=== PATIENT | male | born 1955 | race Hispanic/Latino ===

== ENCOUNTER 2017-10-01 22:08 | Emergency (ER) | payer MEDICARE ==
[2017-10-01 22:59] LABS: BASOPHILS % (AUTO) 0.8 % (0.0-5.0); EOSINOPHILS % (AUTO) 1.8 % (0.0-8.0); HEMATOCRIT 43.3 % (42-54); LYMPHOCYTES % (AUTO) 30.8 % (21.0-51.0); MEAN CORPUSCULAR HEMOGLOBIN 33.3 pg (27.0-33.0); MEAN CORPUSCULAR VOLUME 92.5 fL (79-99); MONOCYTES % (AUTO) 5.3 % (3.0-13.0); NEUTROPHILS % (AUTO) 61.3 % (40.0-77.0); PLATELET COUNT (AUTO) 271 K/uL (130-400); RED BLOOD CELL COUNT(AUTO) 4.68 MIL/uL (4.50-6.20); RED CELL DISTRIBUTION WIDTH 12.3 % (11.0-15.5); WHITE BLOOD COUNT (AUTO) 9.1 K/uL (4.8-10.8)
[2017-10-01 23:09] LABS: APPEARANCE,URINE Clear (CLEAR); BILIRUBIN,URINE Negative (NEGATIVE); COLOR,URINE Yellow (YELLOW); GLUCOSE, URINE (UA) Negative (NEGATIVE); KETONES,URINE Negative (NEGATIVE); LEUKOCYTE ESTERASE ,URINE Negative (NEGATIVE); NITRATE,URINE Negative (NEGATIVE); OCCULT BLOOD,URINE Negative (NEGATIVE); PH,URINE 6.5 (5.0-8.0); PROTEIN,URINE Negative (NEGATIVE); UROBILINOGEN,URINE 0.2 mg/dL (0.2-1.0)
[2017-10-01 23:11] LABS: CREATININE 0.6 mg/dL (0.5-1.5); POTASSIUM 4.1 mmol/L (3.5-5.1)
[2017-10-01 23:16] LABS: AMPHET/METH SCREEN,URINE NEGATIVE (NEGATIVE); BARBITURATE SCREEN, URINE NEGATIVE (NEGATIVE); BENZODIAZEPINES SCREEN,URINE NEGATIVE (NEGATIVE); CANNABINOID SCREEN,URINE NEGATIVE (NEGATIVE); COCAINE SCREEN,URINE POSITIVE (NEGATIVE); OPIATE SCREEN,URINE NEGATIVE (NEGATIVE); PHENCYCLIDINE SCREEN,URINE NEGATIVE (NEGATIVE)
[2017-10-01 23:28] LABS: ALBUMIN 3.9 g/dL (3.5-5.0); BILIRUBIN,TOTAL 0.3 mg/dL (0.2-1.0); CREATINE KINASE MB 1.2 ng/mL (0.5-3.6)
[2017-10-01] MEDS ORDERED: NITROGLYCERIN 1GM/1 INCH PACKET TD ONE (23:32)
== END 2017-10-02 01:26 | disposition home or self-care (01) ==
LOC: EDH 22:08
DX: R07.89 Other chest pain (principal); F14.10 Cocaine abuse, uncomplicated; F10.10 Alcohol abuse, uncomplicated; E11.9 Type 2 diabetes mellitus without complications; I10 Essential (primary) hypertension; I25.2 Old myocardial infarction; Z79.4 Long term (current) use of insulin; Z72.0 Tobacco use
CPT/HCPCS: 36415; 71046; 80053; 80305; 81003; 82550; 82553; 83690; 84484 ×2; 85025; 93005 ×2; 99285; G0480

== ENCOUNTER 2018-01-12 13:25 | Emergency (ER) | payer MEDICARE ==
[2018-01-12 13:48] LABS: BASOPHILS % (AUTO) 0.9 % (0.0-5.0); EOSINOPHILS % (AUTO) 1.5 % (0.0-8.0); LYMPHOCYTES % (AUTO) 23.8 % (21.0-51.0); MEAN CORPUSCULAR HEMOGLOBIN 33.3 pg (27.0-33.0); MEAN CORPUSCULAR VOLUME 92.5 fL (79-99); MONOCYTES % (AUTO) 8.2 % (3.0-13.0); NEUTROPHILS % (AUTO) 65.6 % (40.0-77.0); PLATELET COUNT (AUTO) 208 K/uL (130-400); RED BLOOD CELL COUNT(AUTO) 4.11 MIL/uL (4.50-6.20); RED CELL DISTRIBUTION WIDTH 13.3 % (11.0-15.5); WHITE BLOOD COUNT (AUTO) 7.6 K/uL (4.8-10.8)
[2018-01-12 13:56] LABS: AMPHET/METH SCREEN,URINE NEGATIVE (NEGATIVE); BARBITURATE SCREEN, URINE NEGATIVE (NEGATIVE); BENZODIAZEPINES SCREEN,URINE NEGATIVE (NEGATIVE); CANNABINOID SCREEN,URINE NEGATIVE (NEGATIVE); COCAINE SCREEN,URINE POSITIVE (NEGATIVE); OPIATE SCREEN,URINE NEGATIVE (NEGATIVE); PHENCYCLIDINE SCREEN,URINE NEGATIVE (NEGATIVE)
[2018-01-12 14:06] LABS: INR 0.92 (0.85-1.15); PARTIAL THROMBOPLASTIN TIME 26.1 SEC (26.3-35.5); PROTHROMBIN TIME 9.7 SEC (9.6-11.6)
[2018-01-12 14:22] LABS: CREATININE 0.8 mg/dL (0.5-1.5); POTASSIUM 4.1 mmol/L (3.5-5.1)
[2018-01-12 14:25] LABS: ALBUMIN 2.9 g/dL (3.5-5.0); B-TYPE NATRIURETIC PEPTIDE 44 pg/mL (0-100); BILIRUBIN,TOTAL 0.3 mg/dL (0.2-1.0); TOTAL PROTEIN, SERUM 6.1 g/dL (6.0-8.3)
== END 2018-01-12 14:52 | disposition home or self-care (01) ==
LOC: EDH 13:25
DX: R07.89 Other chest pain (principal); F14.10 Cocaine abuse, uncomplicated; I25.10 Atherosclerotic heart disease of native coronary artery without angina pectoris; E11.9 Type 2 diabetes mellitus without complications; I10 Essential (primary) hypertension; I25.2 Old myocardial infarction; Z98.890 Other specified postprocedural states
CPT/HCPCS: 36415; 71045; 80053; 80305; 82550; 83880; 84484; 85025; 85610; 85730; 93005; 94761

== ENCOUNTER 2018-07-03 13:32 | Observation (INO) | payer MEDICARE ==
[~2018-07-03] VITALS: Ht 165.1 cm; Wt 67.0 kg
[~2018-07-03 13:32] MED LIST: ASPI-555 PO; BENZ2TAB10 PO; CLOP75TA32 PO; GLIP5TAB11 PO; HALO10 PO; ISOSM20 PO; LISI-613 PO; METF-446 PO; METO25TA6 PO; MONT10TA24 PO; NITR0.4T50 SL; RANO500T2 PO; ROPI2TAB2 PO
[2018-07-03] MEDS ORDERED: FAMOTIDINE/PF 20 MG/2 ML VIAL IV ONE (14:26)
[2018-07-03] MEDS ORDERED: MORPHINE SULFATE 2 MG/ML 1ML SYG ONE (14:26)
[2018-07-03 14:57] LABS: CREATININE 0.8 mg/dL (0.5-1.5); POTASSIUM 3.4 mmol/L (3.5-5.1)
[2018-07-03 15:00] LABS: ALBUMIN 3.4 g/dL (3.5-5.0); BILIRUBIN,TOTAL 0.7 mg/dL (0.2-1.0); TOTAL PROTEIN, SERUM 6.7 g/dL (6.0-8.3)
[2018-07-03 15:04] LABS: BASOPHILS % (AUTO) 0.5 % (0.0-5.0); EOSINOPHILS % (AUTO) 0.1 % (0.0-8.0); HEMATOCRIT 36.3 % (42-54); LYMPHOCYTES % (AUTO) 13.1 % (21.0-51.0); MEAN CORPUSCULAR HEMOGLOBIN 32.9 pg (27.0-33.0); MEAN CORPUSCULAR HGB CONC 36.7 g/dL (32.0-36.0); MEAN CORPUSCULAR VOLUME 89.9 fL (79-99); MONOCYTES % (AUTO) 4.4 % (3.0-13.0); NEUTROPHILS % (AUTO) 81.9 % (40.0-77.0); PLATELET COUNT (AUTO) 284 K/uL (130-400); RED BLOOD CELL COUNT(AUTO) 4.04 MIL/uL (4.50-6.20); RED CELL DISTRIBUTION WIDTH 13.3 % (11.0-15.5); WHITE BLOOD COUNT (AUTO) 10.5 K/uL (4.8-10.8)
[2018-07-03 15:29] LABS: B-TYPE NATRIURETIC PEPTIDE 36 pg/mL (0-100)
[2018-07-03] MEDS ORDERED: NITROGLYCERIN 0.4 MG SL TAB SL PRN (16:45)
[2018-07-03 17:45] VITALS: BP 138/80
[2018-07-03] MEDS: GLIPIZIDE 5 MG TABLET PO SCH (18:22)
[2018-07-03 19:42] VITALS: BP 155/77
[2018-07-03] MEDS: RANOLAZINE 500 MG TAB.SR.12H PO SCH (20:25)
[2018-07-03] MEDS: METOPROLOL TARTRATE 25 MG TAB PO SCH (20:26)
[2018-07-03] MEDS ORDERED: BENZTROPINE MESYLATE 0.5 MG TAB PO SCH (21:00)
[2018-07-03] MEDS ORDERED: MONTELUKAST SODIUM 10 MG TAB PO SCH (21:00)
[2018-07-03] MEDS ORDERED: ROPINIROLE HCL 1 MG TABLET PO SCH (21:00)
[2018-07-03 21:42] LABS: CREATINE KINASE, TOTAL 29 U/L (21-232); MYOGLOBIN 18 ng/mL (10-92); TROPONIN I < 0.04 ng/mL (0.00-0.06)
[2018-07-03 23:59] VITALS: BP 137/68
[2018-07-04 03:55] LABS: HEMATOCRIT 36.8 % (42-54); MEAN CORPUSCULAR HEMOGLOBIN 32.5 pg (27.0-33.0); MEAN CORPUSCULAR HGB CONC 36.4 g/dL (32.0-36.0); MEAN CORPUSCULAR VOLUME 89.3 fL (79-99); NUCLEATED RED BLOOD CELLS 0.1 % (0.0-0.19); PLATELET COUNT (AUTO) 254 K/uL (130-400); RED BLOOD CELL COUNT(AUTO) 4.13 MIL/uL (4.50-6.20); RED CELL DISTRIBUTION WIDTH 13.3 % (11.0-15.5)
[2018-07-04 03:59] LABS: HEMOGLOBIN A1C 7.6 % (4.0-6.0)
[2018-07-04 04:13] VITALS: BP 159/83
[2018-07-04 04:18] LABS: CARBON DIOXIDE 27 mmol/L (21-32); CHLORIDE 98 mmol/L (101-111); CHOLESTEROL 139 mg/dL (<200); CREATINE KINASE, TOTAL 27 U/L (21-232); CREATININE 0.7 mg/dL (0.5-1.5); GLOMERULAR FILTR. RATE CALC 122 mL/min (>60); GLUCOSE,RANDOM 99 mg/dL (70-105); HDL CHOLESTEROL 76 mg/dL (29-71); LDL DIRECT 58 mg/dL (0-99); MYOGLOBIN 15 ng/mL (10-92); POTASSIUM 3.8 mmol/L (3.5-5.1); SODIUM SERUM 134 mmol/L (136-145); TRIGLYCERIDES 44 mg/dL (30-200); TROPONIN I < 0.04 ng/mL (0.00-0.06); UREA NITROGEN, BLOOD 6 mg/dL (7-18)
[2018-07-04 05:05] LABS: BASOPHILS % (MANUAL) 1 % (0-2); EOSINOPHILS % (MANUAL) 1 % (1-6); LYMPHOCYTES % (MANUAL) 32 % (22-44); MAN.DIFF COMMENT-IMPRESSION MANUAL DIFFERENTIAL; MONOCYTES % (MANUAL) 4 % (2-9); REACTIVE LYMPHOCYTES 7 % (0-0); SEGMENTED NEUTROPHILS % 55 % (40-70)
[2018-07-04 05:06] LABS: PLATELET MORPHOLOGY COMMENT ADEQUATE
[2018-07-04 07:40] VITALS: BP 154/92
[2018-07-04] MEDS: RANOLAZINE 500 MG TAB.SR.12H PO SCH (08:07)
[2018-07-04] MEDS: METOPROLOL TARTRATE 25 MG TAB PO SCH (08:07)
[2018-07-04] MEDS: GLIPIZIDE 5 MG TABLET PO SCH (08:07)
[2018-07-04] MEDS ORDERED: ISOSORBIDE MONONITRATE 20 MG TABLET PO SCH (09:00)
[2018-07-04] MEDS ORDERED: ASPIRIN 81 MG EC TAB PO SCH (09:00)
[2018-07-04] MEDS ORDERED: METFORMIN HCL 500 MG TAB.SR.24H PO SCH (09:00)
[2018-07-04] MEDS ORDERED: HALOPERIDOL 5 MG TABLET PO SCH (09:00)
[2018-07-04] MEDS ORDERED: CLOPIDOGREL BISULFATE 75 MG TAB PO SCH (09:00)
[2018-07-04] MEDS ORDERED: LISINOPRIL 20 MG TABLET PO SCH (09:00)
[2018-07-04 11:28] VITALS: BP 127/62
== END 2018-07-04 14:35 | disposition home or self-care (01) ==
LOC: EDH 13:32 → EDHIP 15:53 → 2AH 17:41
PROVIDERS: ADMIT Internal Medicine Nephrology; ATTEND Internal Medicine Nephrology
DX: R07.89 Other chest pain (principal); E11.51 Type 2 diabetes mellitus with diabetic peripheral angiopathy without gangrene; E87.1 Hypo-osmolality and hyponatremia; D64.9 Anemia, unspecified; I25.10 Atherosclerotic heart disease of native coronary artery without angina pectoris; I10 Essential (primary) hypertension; I25.2 Old myocardial infarction; E78.5 Hyperlipidemia, unspecified; E87.6 Hypokalemia; I42.9 Cardiomyopathy, unspecified; F17.210 Nicotine dependence, cigarettes, uncomplicated; F14.10 Cocaine abuse, uncomplicated; F29 Unspecified psychosis not due to a substance or known physiological condition; F31.9 Bipolar disorder, unspecified; Z91.19 Patient's noncompliance with other medical treatment and regimen; Z95.1 Presence of aortocoronary bypass graft; Z95.5 Presence of coronary angioplasty implant and graft; F41.9 Anxiety disorder, unspecified
CPT/HCPCS: 36415 ×2; 71045; 80048; 80053; 80061; 82550 ×3; 82948; 83036; 83874 ×2; 83880; 84484 ×3; 85025 ×2; 85378; 93005 ×2; 99285; G0378 ×23; J3490

== ENCOUNTER 2018-09-07 11:42 | Emergency (ER) | payer MEDICARE ==
[2018-09-07] MEDS ORDERED: ASPIRIN 325 MG TABLET ONE (12:01)
[2018-09-07] MEDS ORDERED: LORAZEPAM 2 MG/ML 1 ML VIAL ONE (12:02)
[2018-09-07 12:27] LABS: AMPHET/METH SCREEN,URINE NEGATIVE (NEGATIVE); BARBITURATE SCREEN, URINE NEGATIVE (NEGATIVE); BENZODIAZEPINES SCREEN,URINE NEGATIVE (NEGATIVE); CANNABINOID SCREEN,URINE NEGATIVE (NEGATIVE); COCAINE SCREEN,URINE NEGATIVE (NEGATIVE); OPIATE SCREEN,URINE NEGATIVE (NEGATIVE); PHENCYCLIDINE SCREEN,URINE NEGATIVE (NEGATIVE)
[2018-09-07] MEDS ORDERED: IPRATROPIUM/ALBUTEROL SULFATE 3 ML SOLUTION IH ONE ×2 (12:31→13:44)
[2018-09-07 12:42] LABS: CREATININE 0.9 mg/dL (0.5-1.5); POTASSIUM 3.9 mmol/L (3.5-5.1)
[2018-09-07 12:44] LABS: INR 0.91 (0.85-1.15); PARTIAL THROMBOPLASTIN TIME 26.1 SEC (26.3-35.5); PROTHROMBIN TIME 9.6 SEC (9.6-11.6)
[2018-09-07 12:46] LABS: ALBUMIN 3.6 g/dL (3.5-5.0); BILIRUBIN,TOTAL 0.6 mg/dL (0.2-1.0); TOTAL PROTEIN, SERUM 7.2 g/dL (6.0-8.3)
[2018-09-07] MEDS ORDERED: PREDNISONE 20 MG TABLET ONE (13:40)
== END 2018-09-07 14:17 | disposition home or self-care (01) ==
LOC: EDH 11:42
DX: J98.01 Acute bronchospasm (principal); R07.89 Other chest pain; F17.200 Nicotine dependence, unspecified, uncomplicated; F41.9 Anxiety disorder, unspecified; F31.9 Bipolar disorder, unspecified; I25.10 Atherosclerotic heart disease of native coronary artery without angina pectoris; F14.10 Cocaine abuse, uncomplicated; E11.9 Type 2 diabetes mellitus without complications; I10 Essential (primary) hypertension; I25.2 Old myocardial infarction; Z79.4 Long term (current) use of insulin
CPT/HCPCS: 36415; 71045; 80053; 80305; 84484; 85378; 85610; 85730; 93005; 94640 ×2; 96374; 99284; J2060

== ENCOUNTER 2019-02-08 15:07 | Inpatient (IN) | payer OTHER ==
[~2019-02-08] VITALS: Ht 165.1 cm; Wt 64.0 kg
[~2019-02-08 15:07] MED LIST changes: -ASPI-555 PO; -ISOSM20 PO; -LISI-613 PO; +LISI1TAB11 PO; +OMEP20CA10 PO; -RANO500T2 PO; +TAMS-1 PO
[2019-02-08] MEDS ORDERED: IOHEXOL 350 MG/ML 100ML INFUS..BTL IV ONE (15:28)
[2019-02-08 15:45] LABS: BASOPHILS % (AUTO) 0.3 % (0.0-5.0); EOSINOPHILS % (AUTO) 0.2 % (0.0-8.0); HEMATOCRIT 29.2 % (42-54); LYMPHOCYTES % (AUTO) 7.5 % (21.0-51.0); MEAN CORPUSCULAR HEMOGLOBIN 32.2 pg (27.0-33.0); MEAN CORPUSCULAR HGB CONC 36.9 g/dL (32.0-36.0); MEAN CORPUSCULAR VOLUME 87.3 fL (79-99); MONOCYTES % (AUTO) 9.5 % (3.0-13.0); NEUTROPHILS % (AUTO) 82.5 % (40.0-77.0); PLATELET COUNT (AUTO) 292 K/uL (130-400); RED BLOOD CELL COUNT(AUTO) 3.35 MIL/uL (4.50-6.20); RED CELL DISTRIBUTION WIDTH 13.4 % (11.0-15.5); WHITE BLOOD COUNT (AUTO) 10.2 K/uL (4.8-10.8)
[2019-02-08 15:59] LABS: INR 0.97 (0.85-1.15); PARTIAL THROMBOPLASTIN TIME 31.5 SEC (26.3-35.5); PROTHROMBIN TIME 10.2 SEC (9.6-11.6)
[2019-02-08] MEDS ORDERED: SODIUM CHLORIDE 0.9% 1000ML 1,000 ML IV ONE ×3 (16:15→17:41)
[2019-02-08] MEDS ORDERED: TETANUS/DIPHTHERIA TOXOID [ADULT] 0.5 ML VIAL IM ONE (16:15)
[2019-02-08 16:19] LABS: ALBUMIN 4.1 g/dL (3.5-5.0); BILIRUBIN,DIRECT 0.3 mg/dL (0.0-0.3); BILIRUBIN,TOTAL 1.2 mg/dL (0.2-1.0); CREATININE 0.6 mg/dL (0.5-1.5); POTASSIUM 4.1 mmol/L (3.5-5.1); TOTAL PROTEIN, SERUM 6.9 g/dL (6.0-8.3)
[2019-02-08 16:35] LABS: APPEARANCE,URINE Clear (CLEAR); BILIRUBIN,URINE Negative (NEGATIVE); COLOR,URINE Yellow (YELLOW); GLUCOSE, URINE (UA) 250 mg/dL (NEGATIVE); KETONES,URINE Trace mg/dL (NEGATIVE); LEUKOCYTE ESTERASE ,URINE Negative (NEGATIVE); NITRATE,URINE Negative (NEGATIVE); OCCULT BLOOD,URINE Negative (NEGATIVE); PH,URINE 7.5 (5.0-8.0); PROTEIN,URINE Negative (NEGATIVE)
[2019-02-08 16:41] LABS: AMPHET/METH SCREEN,URINE NEGATIVE (NEGATIVE); BARBITURATE SCREEN, URINE NEGATIVE (NEGATIVE); BENZODIAZEPINES SCREEN,URINE NEGATIVE (NEGATIVE); CANNABINOID SCREEN,URINE NEGATIVE (NEGATIVE); COCAINE SCREEN,URINE NEGATIVE (NEGATIVE); OPIATE SCREEN,URINE NEGATIVE (NEGATIVE); PHENCYCLIDINE SCREEN,URINE NEGATIVE (NEGATIVE)
[2019-02-08 18:17] LABS: ABG BASE EXCESS -2.9 mmol/L (-2.0-3.0); ABG HCO3 21.3 mmol/L (21.0-28.0); ABG OXYGEN SATURATION 97.3 % (95.0-99.0); ABG PCO2 36 mmHg (35-48)
[2019-02-08 19:12] VITALS: BP 133/64
[2019-02-08] MEDS ORDERED: SODIUM CHLORIDE 0.9% 1000ML 1,000 ML IV SCH (22:45)
[2019-02-09 00:04] VITALS: BP 115/78
[2019-02-09 04:00] VITALS: BP 134/64
[2019-02-09 04:37] LABS: CREATININE 0.6 mg/dL (0.5-1.5); POTASSIUM 3.4 mmol/L (3.5-5.1)
[2019-02-09 08:00] VITALS: BP 133/64
[2019-02-09] MEDS: SODIUM CHLORIDE 0.9% 1000ML 1,000 ML IV SCH (10:20)
[2019-02-09] MEDS ORDERED: TAMSULOSIN HCL 0.4 MG CAP.ER.24H PO ONE (10:30)
[2019-02-09 12:00] VITALS: BP 170/71
--- NOTE | 2019-02-09 12:50 | NUR ---
[facility]- [facility] [place] MEDICAL RECORD REVIEWED. NO CM INTERVENTION Addendum: 02/09/19 at 1254 by МАРИЯ SOUSA RN CM Amended: Links added.
[2019-02-09 16:00] VITALS: BP 135/81
[2019-02-09] MEDS: METFORMIN HCL 500 MG TABLET PO SCH (18:34)
[2019-02-09 19:00] VITALS: BP 133/86
[2019-02-09] MEDS: METOPROLOL TARTRATE 25 MG TAB PO SCH (20:56)
[2019-02-09] MEDS: MONTELUKAST SODIUM 10 MG TAB PO SCH (20:56)
[2019-02-10 00:03] VITALS: BP 123/55
[2019-02-10 04:05] VITALS: BP 117/71
[2019-02-10 05:44] LABS: HEMATOCRIT 27.6 % (42-54); MEAN CORPUSCULAR HEMOGLOBIN 32.2 pg (27.0-33.0); MEAN CORPUSCULAR HGB CONC 35.9 g/dL (32.0-36.0); MEAN CORPUSCULAR VOLUME 89.7 fL (79-99); PLATELET COUNT (AUTO) 299 K/uL (130-400); RED BLOOD CELL COUNT(AUTO) 3.08 MIL/uL (4.50-6.20); RED CELL DISTRIBUTION WIDTH 13.6 % (11.0-15.5); WHITE BLOOD COUNT (AUTO) 11.6 K/uL (4.8-10.8)
[2019-02-10 05:49] LABS: BAND NEUTROPHILS % (MANUAL) 2 % (0-2); CREATININE 0.6 mg/dL (0.5-1.5); LYMPHOCYTES % (MANUAL) 12 % (22-44); MONOCYTES % (MANUAL) 12 % (2-9); POTASSIUM 3.8 mmol/L (3.5-5.1); SEGMENTED NEUTROPHILS % 74 % (40-70)
[2019-02-10 05:50] LABS: MAN.DIFF COMMENT-IMPRESSION MANUAL DIFFERENTIAL; PLATELET MORPHOLOGY COMMENT ADEQUATE
[2019-02-10 08:34] VITALS: BP 106/75
[2019-02-10] MEDS ORDERED: TAMSULOSIN HCL 0.4 MG CAP.ER.24H PO SCH (09:00)
[2019-02-10] MEDS: METOPROLOL TARTRATE 25 MG TAB PO SCH ×2 (09:03→20:35)
[2019-02-10] MEDS: PANTOPRAZOLE SODIUM 40 MG TABLET.DR PO SCH (09:03)
[2019-02-10] MEDS: METFORMIN HCL 500 MG TABLET PO SCH ×2 (09:04→17:37)
[2019-02-10] MEDS: CLOPIDOGREL BISULFATE 75 MG TAB PO SCH (09:04)
[2019-02-10] MEDS: TAMSULOSIN HCL 0.4 MG CAP.ER.24H PO SCH (09:04)
[2019-02-10] MEDS: SODIUM CHLORIDE 0.9% 1000ML 1,000 ML IV SCH ×2 (09:08→20:43)
[2019-02-10] MEDS ORDERED: SODIUM CHLORIDE 1,000 MG TAB PO SCH (09:30)
[2019-02-10 11:00] VITALS: BP 103/72
[2019-02-10 16:00] VITALS: BP 122/78
[2019-02-10 19:00] VITALS: BP 159/71
[2019-02-10] MEDS: MONTELUKAST SODIUM 10 MG TAB PO SCH (20:36)
[2019-02-11] VITALS: BP 135/75
[2019-02-11 04:00] VITALS: BP 151/93
[2019-02-11 06:19] LABS: CREATININE 0.7 mg/dL (0.5-1.5); POTASSIUM 4.1 mmol/L (3.5-5.1)
[2019-02-11 08:00] VITALS: BP 158/98
[2019-02-11] MEDS: TAMSULOSIN HCL 0.4 MG CAP.ER.24H PO SCH (09:31)
[2019-02-11] MEDS: PANTOPRAZOLE SODIUM 40 MG TABLET.DR PO SCH (09:31)
[2019-02-11] MEDS: METFORMIN HCL 500 MG TABLET PO SCH (09:31)
[2019-02-11] MEDS: METOPROLOL TARTRATE 25 MG TAB PO SCH (09:31)
[2019-02-11] MEDS: CLOPIDOGREL BISULFATE 75 MG TAB PO SCH (09:32)
[2019-02-11] MEDS ORDERED: SODIUM CHLORIDE 1,000 MG TAB PO SCH (10:00)
[2019-02-11 11:00] VITALS: BP 132/73
--- NOTE | 2019-02-11 14:04 | NUR ---
PT D/C HOME USING TEACH BACK TECHNIQUE RE; S/S TO WATCH FOR AND WHEN TO CALL MD OR 911. AAOX3, 2 IV OUT INTACT, NO BLEEDING, NO SOB, NO TELE, NURSE EMILY AWARE TO: PATIENT IS TO FOLLOW UP WITH DR. VAZQUEZ IN 2 WEEKS, CALL TO SET UP AN APPOINTMENT STAFF OUT TO LUNCH. CALL AT PHONE# [phone]. CALL DR[address] VAZQUEZ IF PATIENT IS HAVING RECURRENT FALLS, OR CONFUSED. PATIENT IS TO TAKE SALT TABLETS PRESCRIBED BY THE PRACTICAL NURSING TEACHER.
== END 2019-02-11 14:10 | disposition home or self-care (01) | DRG 641 ==
LOC: EDH 15:07 → EEVIPCON 15:07 → EDHIP 17:43 → OBSVTOIN 17:43 → 4CH 19:10
PROVIDERS: ADMIT Internal Medicine Nephrology; ATTEND Internal Medicine Nephrology
PROC: 3E0234Z Introduction of Serum, Toxoid and Vaccine into Muscle, Percutaneous Approach (ICD-10-PCS; principal; 2019-02-08)
DX: E87.1 Hypo-osmolality and hyponatremia (principal); N28.9 Disorder of kidney and ureter, unspecified; N40.0 Benign prostatic hyperplasia without lower urinary tract symptoms; E87.8 Other disorders of electrolyte and fluid balance, not elsewhere classified; E11.9 Type 2 diabetes mellitus without complications; I10 Essential (primary) hypertension; E86.9 Volume depletion, unspecified; I25.10 Atherosclerotic heart disease of native coronary artery without angina pectoris; Z23 Encounter for immunization
CPT/HCPCS: 36415; 36600; 70450; 71260; 72125; 73590; 74177; 80048; 80076; 80305; 81003; 82140; 82550; 82803; 82948; 84484; 85025; 85610; 85730; 87040; 90714; 93005; 99291; G0378; J7030; Q9967

== ENCOUNTER 2019-10-31 07:41 | Emergency (ER) | payer MEDICARE, OTHER ==
[~2019-10-31 07:41] MED LIST changes: -BENZ2TAB10 PO; -GLIP5TAB11 PO; -HALO10 PO; -LISI1TAB11 PO; -MONT10TA24 PO; +MONT10TA26 PO; -OMEP20CA10 PO; +OMEP20CA12 PO; -ROPI2TAB2 PO
[2019-10-31] MEDS ORDERED: LIDOCAINE 5% TOPICAL PATCH TP ONE (08:12)
== END 2019-10-31 08:24 | disposition home or self-care (01) ==
LOC: EDH 07:41
DX: G89.29 Other chronic pain (principal); M25.552 Pain in left hip; F31.9 Bipolar disorder, unspecified; E11.9 Type 2 diabetes mellitus without complications; I10 Essential (primary) hypertension; F41.9 Anxiety disorder, unspecified; I25.10 Atherosclerotic heart disease of native coronary artery without angina pectoris; F14.10 Cocaine abuse, uncomplicated; I25.2 Old myocardial infarction
CPT/HCPCS: 73502

== ENCOUNTER → 2020-12-14 | Outpatient (CLI) | payer OTHER ==
[~2020-12-14] MED LIST changes: -MONT10TA26 PO; +MONT10TA32 PO
== END | disposition home or self-care (01) ==
LOC: RAH 14:34
PROVIDERS: ATTEND Physical Medicine & Rehabilitation
DX: M51.16 Intervertebral disc disorders with radiculopathy, lumbar region (principal); M48.061 Spinal stenosis, lumbar region without neurogenic claudication
CPT/HCPCS: 72148

== ENCOUNTER → 2021-02-08 | Outpatient (CLI) | payer OTHER | END | disposition home or self-care (01) | LOC: RAH 09:14 | PROVIDERS: ATTEND Physical Medicine & Rehabilitation | DX: M50.223 Other cervical disc displacement at C6-C7 level (principal); M48.02 Spinal stenosis, cervical region | CPT/HCPCS: 72141 ==

== ENCOUNTER → 2021-02-23 | Outpatient (CLI) | payer OTHER | END | disposition home or self-care (01) | LOC: RAH 09:28 | PROVIDERS: ATTEND Physical Medicine & Rehabilitation | DX: M25.571 Pain in right ankle and joints of right foot (principal); M25.832 Other specified joint disorders, left wrist; M25.831 Other specified joint disorders, right wrist; M25.572 Pain in left ankle and joints of left foot; M25.532 Pain in left wrist; M25.531 Pain in right wrist | CPT/HCPCS: 73110; 73610 ==

== ENCOUNTER → 2021-03-12 | Outpatient (CLI) | payer OTHER | END | disposition home or self-care (01) | LOC: RAH 10:09 | PROVIDERS: ATTEND Physical Medicine & Rehabilitation | DX: I70.293 Other atherosclerosis of native arteries of extremities, bilateral legs (principal); I65.23 Occlusion and stenosis of bilateral carotid arteries | CPT/HCPCS: 93925; 93930 ==

== ENCOUNTER 2021-11-23 09:02 | Emergency (ER) | payer OTHER ==
[~2021-11-23] VITALS: Ht 165.1 cm; Wt 70.3 kg
[~2021-11-23 09:02] MED LIST changes: +ATOR40TA69 PO; +MONT-39 PO; -MONT10TA32 PO
[2021-11-23 09:31] LABS: BASOPHILS % (AUTO) 0.8 % (0.0-5.0); EOSINOPHILS % (AUTO) 4.1 % (0.0-8.0); LYMPHOCYTES % (AUTO) 36.1 % (21.0-51.0); MEAN CORPUSCULAR HEMOGLOBIN 30.5 pg (27.0-33.0); MEAN CORPUSCULAR HGB CONC 33.3 g/dL (32.0-36.0); MEAN CORPUSCULAR VOLUME 91.5 fL (79-99); MONOCYTES % (AUTO) 6.1 % (3.0-13.0); PLATELET COUNT (AUTO) 249 K/uL (130-400); RED BLOOD CELL COUNT(AUTO) 2.95 MIL/uL (4.50-6.20); RED CELL DISTRIBUTION WIDTH 13.7 % (11.0-15.5); WHITE BLOOD COUNT (AUTO) 8.5 K/uL (4.8-10.8)
[2021-11-23 09:44] LABS: CREATININE 1.3 mg/dL (0.5-1.5); POTASSIUM 4.2 mmol/L (3.5-5.1)
[2021-11-23 09:49] LABS: ALBUMIN 3.1 g/dL (3.5-5.0); BILIRUBIN,TOTAL 0.8 mg/dL (0.2-1.0); TOTAL PROTEIN, SERUM 6.2 g/dL (6.0-8.3)
[2021-11-23 09:50] LABS: B-TYPE NATRIURETIC PEPTIDE 84 pg/mL (0-100)
[2021-11-23 11:02] VITALS: BP 138/47
[2021-11-23] MEDS ORDERED: ELEC1000 PO (11:08)
[2021-11-26] MEDS ORDERED: ONDA4TAB10 PO (23:10)
[2021-11-26] MEDS ORDERED: METO-296 PO (23:10)
== END 2021-11-23 11:21 | disposition home or self-care (01) ==
LOC: EDH 09:02
DX: R06.00 Dyspnea, unspecified (principal); Z71.1 Person with feared health complaint in whom no diagnosis is made; E11.9 Type 2 diabetes mellitus without complications; E78.00 Pure hypercholesterolemia, unspecified; I10 Essential (primary) hypertension; F17.200 Nicotine dependence, unspecified, uncomplicated; Z79.84 Long term (current) use of oral hypoglycemic drugs; Z79.899 Other long term (current) drug therapy; Z86.73 Personal history of transient ischemic attack (TIA), and cerebral infarction without residual deficits; Z88.6 Allergy status to analgesic agent
CPT/HCPCS: 36415; 71045; 80053; 83880; 84484; 85025; 93005

== ENCOUNTER 2022-02-25 15:27 | Inpatient (IN) | payer MEDICARE, OTHER ==
[~2022-02-25] VITALS: Ht 165.1 cm; Wt 73.7 kg
[~2022-02-25 15:27] MED LIST changes: +ELEC1000 PO; +METO-296 PO; +ONDA4TAB10 PO
[2022-02-25 17:52] LABS: BASOPHILS % (AUTO) 0.3 % (0.0-5.0); HEMATOCRIT 32.9 % (42-54); LYMPHOCYTES % (AUTO) 17.5 % (21.0-51.0); MEAN CORPUSCULAR HEMOGLOBIN 31.6 pg (27.0-33.0); MEAN CORPUSCULAR HGB CONC 35.6 g/dL (32.0-36.0); MEAN CORPUSCULAR VOLUME 88.9 fL (79-99); MONOCYTES % (AUTO) 1.9 % (3.0-13.0); NEUTROPHILS % (AUTO) 77.1 % (40.0-77.0); PLATELET COUNT (AUTO) 355 K/uL (130-400)
[2022-02-25 18:03] LABS: CREATININE 1.4 mg/dL (0.5-1.5); POTASSIUM 3.8 mmol/L (3.5-5.1)
[2022-02-25 18:10] LABS: BILIRUBIN,TOTAL 0.8 mg/dL (0.2-1.0); MAGNESIUM 1.6 mg/dL (1.80-2.40); TOTAL PROTEIN, SERUM 6.9 g/dL (6.0-8.3)
[2022-02-25 18:24] LABS: B-TYPE NATRIURETIC PEPTIDE 53 pg/mL (0-100)
[2022-02-25] MEDS ORDERED: INSULIN HUMULIN R 100 UNIT/ML 3ML SQ STA (18:56)
[2022-02-25] MEDS ORDERED: MAGNESIUM 2GM PREMIX 50ML 50 ML IV SCH (19:00)
[2022-02-25] MEDS ORDERED: DEXAMETHASONE SOD PHOSPHATE 4 MG/ML 1ML VIAL IVP ONE (19:00)
[2022-02-25] MEDS ORDERED: CEFTRIAXONE 1G VIAL IVP ONE (19:00)
[2022-02-25] MEDS ORDERED: 0.9%NACL 1000ML 1,000 ML IV SCH ×2 (19:00→19:30)
[2022-02-25] MEDS ORDERED: DOXYCYCLINE HYCLATE 100 MG TABLET PO SCH (19:00)
[2022-02-25] MEDS ORDERED: ALBUTEROL INHALER 90MCG/INH IH PRN (19:30)
[2022-02-25] MEDS: AZITHROMYCIN 500MG+NS 250ML 250 ML IV SCH (19:30)
[2022-02-25] MEDS ORDERED: NITROGLYCERIN 0.4 MG SL TAB SL PRN (19:30)
[2022-02-25] MEDS ORDERED: ONDANSETRON 4MG INJ IV PRN (19:30)
[2022-02-25] MEDS ORDERED: ACETAMINOPHEN 325 MG TAB PO PRN ×2 (19:30)
[2022-02-25] MEDS ORDERED: DEXTROSE 50%-WATER 50 ML DISP.SYRIN IV PRN (19:30)
[2022-02-25] MEDS ORDERED: GLUCAGON 1MG KIT 1 MG ML IM PRN (19:30)
[2022-02-25] MEDS: ALBUTEROL INHALER 90MCG/INH IH SCH ×2 (20:22→23:08)
[2022-02-25 20:51] LABS: HEMOGLOBIN A1C 6.8 % (4.0-6.0)
[2022-02-25 20:53] LABS: INR 1.02 (0.85-1.15); PROTHROMBIN TIME 11.1 SEC (9.6-11.6)
[2022-02-25 21:00] LABS: CRP QUANTITATIVE 116.8 mg/L (0.00-9.0)
[2022-02-25] MEDS ORDERED: MAGNESIUM OXIDE 400 MG TABLET PO SCH (21:30)
[2022-02-25] MEDS: FAMOTIDINE 20MG TAB PO SCH (21:38)
[2022-02-25] MEDS: HEPARIN 5,000 UNIT VIAL SQ SCH (21:38)
[2022-02-25] MEDS ORDERED: CEFTRIAXONE 1G VIAL ONE (22:20)
[2022-02-25] MEDS: INSULIN HUMULIN R 100 UNIT/ML 3ML SQ SCH (22:41)
[2022-02-26] VITALS: BP 140/65
[2022-02-26] MEDS ORDERED: IOHEXOL 350 MG/ML 100ML INFUS..BTL IV ONE (00:43)
[2022-02-26] MEDS: ALBUTEROL INHALER 90MCG/INH IH SCH ×4 (02:54→16:41)
[2022-02-26 04:21] LABS: BASOPHILS % (AUTO) 0.3 % (0.0-5.0); EOSINOPHILS % (AUTO) 0.7 % (0.0-8.0); HEMATOCRIT 30.9 % (42-54); LYMPHOCYTES % (AUTO) 11.2 % (21.0-51.0); MEAN CORPUSCULAR HGB CONC 35.9 g/dL (32.0-36.0); MONOCYTES % (AUTO) 1.7 % (3.0-13.0); NEUTROPHILS % (AUTO) 83.8 % (40.0-77.0); PLATELET COUNT (AUTO) 394 K/uL (130-400); RED BLOOD CELL COUNT(AUTO) 3.47 MIL/uL (4.50-6.20); WHITE BLOOD COUNT (AUTO) 11.7 K/uL (4.8-10.8)
[2022-02-26 04:30] VITALS: BP 112/72
[2022-02-26 05:02] LABS: ALBUMIN 2.8 g/dL (3.5-5.0); BILIRUBIN,TOTAL 0.7 mg/dL (0.2-1.0); CREATININE 0.9 mg/dL (0.5-1.5); MAGNESIUM 1.6 mg/dL (1.80-2.40); POTASSIUM 3.4 mmol/L (3.5-5.1); TOTAL PROTEIN, SERUM 6.7 g/dL (6.0-8.3)
[2022-02-26 06:16] LABS: INR 1.06 (0.85-1.15); PROTHROMBIN TIME 11.5 SEC (9.6-11.6)
[2022-02-26 06:18] LABS: PARTIAL THROMBOPLASTIN TIME 28.2 SEC (26.3-35.5)
[2022-02-26] MEDS: INSULIN HUMULIN R 100 UNIT/ML 3ML SQ SCH ×4 (07:30→20:15)
[2022-02-26 08:00] VITALS: BP 155/84
[2022-02-26] MEDS: HEPARIN 5,000 UNIT VIAL SQ SCH ×3 (08:14→20:15)
[2022-02-26] MEDS: FAMOTIDINE 20MG TAB PO SCH ×2 (08:18→20:09)
[2022-02-26 12:00] VITALS: BP 155/93
[2022-02-26] MEDS ORDERED: POTASSIUM CHLORIDE 20MEQ/100ML 100 ML IV PRN (15:00)
[2022-02-26] MEDS ORDERED: KCL 20 MEQ ERTAB PO PRN (15:00)
[2022-02-26] MEDS ORDERED: METOPROLOL TARTRATE 25 MG TAB PO ONE (15:00)
[2022-02-26] MEDS ORDERED: LIDOCAINE HCL-MPF 1% 2ML VIAL IV PRN (15:00)
[2022-02-26] MEDS: HYDROCODONE/ACETAMINOPHEN 5/325 MG TAB PO PRN ×2 (15:07→23:41)
[2022-02-26] MEDS: POTASSIUM CHLORIDE 10% ELIXIR 20 MEQ/15 ML UDCUP PO PRN ×2 (15:07→20:09)
[2022-02-26 16:00] VITALS: BP 162/83
[2022-02-26] MEDS: PREDNISONE 20 MG TABLET PO SCH (16:40)
[2022-02-26 20:00] VITALS: BP 151/75
[2022-02-26] MEDS: AZITHROMYCIN 500MG+NS 250ML 250 ML IV SCH (20:09)
[2022-02-26] MEDS: METOPROLOL TARTRATE 25 MG TAB PO SCH (20:10)
[2022-02-26] MEDS ORDERED: CEFTRIAXONE 1G VIAL IV SCH (21:00)
[2022-02-26] MEDS ORDERED: ATORVASTATIN 40 MG TABLET PO SCH (21:00)
[2022-02-27] VITALS: BP 141/78
[2022-02-27 04:00] VITALS: BP 161/96
[2022-02-27 06:06] LABS: BASOPHILS % (AUTO) 0.4 % (0.0-5.0); HEMATOCRIT 38.8 % (42-54); LYMPHOCYTES % (AUTO) 19.6 % (21.0-51.0); MEAN CORPUSCULAR HEMOGLOBIN 31.6 pg (27.0-33.0); MEAN CORPUSCULAR HGB CONC 34.3 g/dL (32.0-36.0); MEAN CORPUSCULAR VOLUME 92.2 fL (79-99); MONOCYTES % (AUTO) 3.2 % (3.0-13.0); NEUTROPHILS % (AUTO) 74.3 % (40.0-77.0); PLATELET COUNT (AUTO) 408 K/uL (130-400); RED BLOOD CELL COUNT(AUTO) 4.21 MIL/uL (4.50-6.20); RED CELL DISTRIBUTION WIDTH 14.8 % (11.0-15.5); WHITE BLOOD COUNT (AUTO) 9.9 K/uL (4.8-10.8)
[2022-02-27 06:21] LABS: BILIRUBIN,TOTAL 0.7 mg/dL (0.2-1.0); CREATININE 0.8 mg/dL (0.5-1.5); POTASSIUM 4.4 mmol/L (3.5-5.1); TOTAL PROTEIN, SERUM 7.3 g/dL (6.0-8.3)
[2022-02-27] MEDS ORDERED: PRED20TA3 PO (06:42)
[2022-02-27] MEDS ORDERED: ALBU18HF7 IH (06:42)
[2022-02-27] MEDS ORDERED: AZIT500T4 PO (06:42)
[2022-02-27] MEDS: ALBUTEROL INHALER 90MCG/INH IH SCH ×3 (07:30→15:30)
[2022-02-27] MEDS: INSULIN HUMULIN R 100 UNIT/ML 3ML SQ SCH ×3 (07:30→16:30)
[2022-02-27 08:00] VITALS: BP 154/83
[2022-02-27] MEDS: METOPROLOL TARTRATE 25 MG TAB PO SCH (08:29)
[2022-02-27] MEDS: HYDROCODONE/ACETAMINOPHEN 5/325 MG TAB PO PRN ×3 (08:29→14:18)
[2022-02-27] MEDS: PREDNISONE 20 MG TABLET PO SCH (08:29)
[2022-02-27] MEDS: FAMOTIDINE 20MG TAB PO SCH (08:30)
[2022-02-27] MEDS ORDERED: APIX2.5T PO (08:54)
[2022-02-27] MEDS: HEPARIN 5,000 UNIT VIAL SQ SCH ×2 (09:01→13:11)
[2022-02-27 11:15] VITALS: BP 175/92
[2022-02-27] MEDS ORDERED: HYDR-4153 PO (11:25)
[2022-02-27] MEDS ORDERED: LISINOPRIL 10 MG TABLET PO SCH (11:30)
[2022-02-27] MEDS ORDERED: HYDRALAZINE 25MG TABLET PO PRN (11:30)
[2022-02-27] MEDS ORDERED: LISI10TA24 PO (11:34)
[2022-02-27 16:00] VITALS: BP 168/74
== END 2022-02-27 17:00 | disposition home or self-care (01) | DRG 871 ==
LOC: EDH 15:27 → EDHIP 19:07 → 2AH 23:49
PROVIDERS: ADMIT Hospitalist; ATTEND Hospitalist
DX: A41.89 Other specified sepsis (principal); J12.82 Pneumonia due to coronavirus disease 2019; U07.1 COVID-19; J96.01 Acute respiratory failure with hypoxia; N17.9 Acute kidney failure, unspecified; E87.1 Hypo-osmolality and hyponatremia; J44.0 Chronic obstructive pulmonary disease with (acute) lower respiratory infection; R65.20 Severe sepsis without septic shock; E83.42 Hypomagnesemia; Z86.73 Personal history of transient ischemic attack (TIA), and cerebral infarction without residual deficits; H54.8 Legal blindness, as defined in USA; I10 Essential (primary) hypertension; E78.5 Hyperlipidemia, unspecified; I25.10 Atherosclerotic heart disease of native coronary artery without angina pectoris; E11.65 Type 2 diabetes mellitus with hyperglycemia; Z66 Do not resuscitate
CPT/HCPCS: 36415; 71045; 71270; 80053; 80061; 82550; 82728; 82948; 83036; 83605; 83615; 83735; 83874; 83880; 84145; 84484; 85025; 85378; 85610; 85730; 86140; 87040; 87635; 87804; 93005; 93970; 97039; 99291; C9803; G0378; J0456; J0696; J1644; J1815; J7030; Q9967

== ENCOUNTER 2022-03-25 17:51 | Observation (INO) | payer MEDICARE ==
[~2022-03-25] VITALS: Ht 162.6 cm; Wt 74.3 kg
[~2022-03-25 17:51] MED LIST changes: +ALBU18HF7 IH; +APIX2.5T PO; +AZIT500T4 PO; -ELEC1000 PO; +HYDR-4153 PO; +LISI10TA24 PO; -METO-296 PO; -NITR0.4T50 SL; -ONDA4TAB10 PO; +PRED20TA3 PO
[2022-03-25 18:27] LABS: BASOPHILS % (AUTO) 0.3 % (0.0-5.0); EOSINOPHILS % (AUTO) 1.3 % (0.0-8.0); HEMATOCRIT 27.1 % (42-54); LYMPHOCYTES % (AUTO) 36.4 % (21.0-51.0); MEAN CORPUSCULAR HEMOGLOBIN 32.2 pg (27.0-33.0); MEAN CORPUSCULAR HGB CONC 34.3 g/dL (32.0-36.0); MEAN CORPUSCULAR VOLUME 93.8 fL (79-99); MONOCYTES % (AUTO) 5.2 % (3.0-13.0); NEUTROPHILS % (AUTO) 55.8 % (40.0-77.0); PLATELET COUNT (AUTO) 201 K/uL (130-400); RED BLOOD CELL COUNT(AUTO) 2.89 MIL/uL (4.50-6.20); RED CELL DISTRIBUTION WIDTH 13.4 % (11.0-15.5); WHITE BLOOD COUNT (AUTO) 6.9 K/uL (4.8-10.8)
[2022-03-25 18:40] LABS: CREATININE 0.8 mg/dL (0.5-1.5); POTASSIUM 4.2 mmol/L (3.5-5.1)
[2022-03-25 18:47] LABS: ALBUMIN 2.7 g/dL (3.5-5.0); MAGNESIUM 0.9 mg/dL (1.80-2.40); TOTAL PROTEIN, SERUM 6.1 g/dL (6.0-8.3)
[2022-03-25] MEDS ORDERED: MAGNESIUM 2GM PREMIX 50ML 50 ML IV SCH (19:30)
[2022-03-25] MEDS ORDERED: ENOXAPARIN SODIUM 1 MG/KG SQ SCH (19:30)
[2022-03-25] MEDS ORDERED: ONDANSETRON 4MG INJ IV PRN (20:30)
[2022-03-25] MEDS ORDERED: MORPHINE 2 MG SYG IV PRN (20:30)
[2022-03-25] MEDS ORDERED: ASPIRIN 81MG CHEW TAB PO ONE (20:30)
[2022-03-25] MEDS ORDERED: MORPHINE 4 MG SYG IV PRN (20:30)
[2022-03-25] MEDS ORDERED: ENOXAPARIN SODIUM 100 MG/1 ML SQ ONE (21:17)
[2022-03-25] MEDS: NITROGLYCERIN 1GM OINT 1 INCH/1GM TD SCH (21:25)
[2022-03-26 01:25] VITALS: BP 125/67
[2022-03-26] MEDS ORDERED: SOLU-MEDROL 125MG VIAL IVP ONE (02:30)
[2022-03-26] MEDS ORDERED: ALBUTEROL INHALER 90MCG/INH IH PRN (03:00)
[2022-03-26] MEDS ORDERED: CEPHALEXIN 500 MG CAPSULE PO SCH ×2 (03:00→09:00)
[2022-03-26] MEDS: NITROGLYCERIN 1GM OINT 1 INCH/1GM TD SCH ×2 (04:34→11:46)
[2022-03-26 04:47] VITALS: BP 156/61
[2022-03-26 05:19] LABS: BASOPHILS % (AUTO) 0.6 % (0.0-5.0); EOSINOPHILS % (AUTO) 2.1 % (0.0-8.0); HEMATOCRIT 31.3 % (42-54); MEAN CORPUSCULAR HEMOGLOBIN 32.1 pg (27.0-33.0); MEAN CORPUSCULAR HGB CONC 33.9 g/dL (32.0-36.0); MEAN CORPUSCULAR VOLUME 94.8 fL (79-99); MONOCYTES % (AUTO) 4.8 % (3.0-13.0); NEUTROPHILS % (AUTO) 52.7 % (40.0-77.0); PLATELET COUNT (AUTO) 228 K/uL (130-400); RED CELL DISTRIBUTION WIDTH 13.4 % (11.0-15.5); WHITE BLOOD COUNT (AUTO) 6.3 K/uL (4.8-10.8)
[2022-03-26 05:22] LABS: HEMOGLOBIN A1C 7.7 % (4.0-6.0)
[2022-03-26 05:36] LABS: INR 0.94 (0.85-1.15); PROTHROMBIN TIME 10.3 SEC (9.6-11.6)
[2022-03-26 06:25] LABS: CREATININE 0.7 mg/dL (0.5-1.5); MAGNESIUM 1.4 mg/dL (1.80-2.40); PHOSPHORUS 3.7 mg/dL (2.5-4.9); THYROID STIMULATING HORMONE 1.18 uIU/mL (0.36-3.74)
[2022-03-26] MEDS: IPRATROPIUM 0.5 MG/2.5 ML INH IH SCH ×2 (07:03→13:38)
[2022-03-26 08:00] VITALS: BP 129/65
[2022-03-26] MEDS ORDERED: BUDESONIDE 0.5 MG/2 ML INH IH SCH ×2 (09:00→18:00)
[2022-03-26] MEDS ORDERED: ASPIRIN 81MG CHEW TAB PO SCH (09:00)
[2022-03-26] MEDS ORDERED: METOPROLOL TARTRATE 1 MG/ML 5ML VIAL IV PRN (09:30)
[2022-03-26] MEDS ORDERED: AZITHROMYCIN 500MG+NS 250ML IVPB SCH (10:00)
[2022-03-26] MEDS ORDERED: CEFTRIAXONE 1G VIAL IVP SCH (10:00)
[2022-03-26] MEDS ORDERED: SOLU-MEDROL 40MG VIAL IVP SCH ×2 (10:30→14:00)
[2022-03-26] MEDS ORDERED: CEPH500T PO (11:06)
[2022-03-26 11:22] VITALS: BP 133/69
[2022-03-26] MEDS ORDERED: INSULIN HUMULIN R 100 UNIT/ML 3ML SQ SCH (12:00)
[2022-03-27] MEDS ORDERED: FAMOTIDINE 20MG TAB PO SCH (09:00)
[2022-03-27] MEDS ORDERED: ENOXAPARIN SODIUM 40 MG/0.4 ML SYRINGE SQ SCH (09:00)
== END 2022-03-26 14:34 | disposition home or self-care (01) ==
LOC: EDH 17:51 → INTOOBSV 20:21 → EDHIP 20:21 → 4AH 03-26 01:12
PROVIDERS: ADMIT Hospitalist; ATTEND Hospitalist
DX: I25.110 Atherosclerotic heart disease of native coronary artery with unstable angina pectoris (principal); R07.89 Other chest pain; J84.10 Pulmonary fibrosis, unspecified; I21.4 Non-ST elevation (NSTEMI) myocardial infarction; D64.9 Anemia, unspecified; R13.10 Dysphagia, unspecified; R79.89 Other specified abnormal findings of blood chemistry; I10 Essential (primary) hypertension; E78.5 Hyperlipidemia, unspecified; J44.9 Chronic obstructive pulmonary disease, unspecified; L73.8 Other specified follicular disorders; E78.00 Pure hypercholesterolemia, unspecified; E11.9 Type 2 diabetes mellitus without complications; H54.8 Legal blindness, as defined in USA; I45.10 Unspecified right bundle-branch block; N40.0 Benign prostatic hyperplasia without lower urinary tract symptoms; Z95.1 Presence of aortocoronary bypass graft; Z86.73 Personal history of transient ischemic attack (TIA), and cerebral infarction without residual deficits; Z79.899 Other long term (current) drug therapy
CPT/HCPCS: 96372; 96365; 99285; 82550; 83735 ×2; 84484 ×4; 80053; 83880; 85025 ×2; 85378; 36415 ×2; 71045; 93005; 97039 ×2; 94640 ×2; 96376; 96366; 96375; 96367; 83036; 84443; 84100; 80048; 85610; 85730; 82948 ×2; 97161; 94664; J3475; J1650; J1815; G0378 ×4; J3490; J2930; J0696; J2920; J0456

== ENCOUNTER → 2022-05-08 | Outpatient (CLI) | payer MEDICARE ==
[~2022-05-08] MED LIST changes: -AZIT500T4 PO; +CEPH500T PO
[2022-05-08 13:05] LABS: CREATININE 0.9 mg/dL (0.5-1.5); POTASSIUM 3.7 mmol/L (3.5-5.1)
== END | disposition home or self-care (01) ==
LOC: LAB 09:29
PROVIDERS: ATTEND Internal Medicine Cardiovascular Disease
DX: R07.9 Chest pain, unspecified (principal)
CPT/HCPCS: 36415; 80048

== ENCOUNTER 2022-05-16 13:20 | Emergency (ER) | payer MEDICARE ==
[~2022-05-16] VITALS: Ht 165.1 cm; Wt 77.1 kg
[2022-05-16 14:33] VITALS: BP 133/69
[2022-05-22] MEDS ORDERED: PANT40TA54 PO ×2 (07:06→18:30)
[2022-05-22] MEDS ORDERED: TEMA30CA PO ×2 (07:06→18:30)
[2022-05-22] MEDS ORDERED: ATOR40TA71 PO (07:06)
[2022-05-22] MEDS ORDERED: MONT-39 PO (07:06)
[2022-05-22] MEDS ORDERED: QUET25TA36 PO (07:06)
[2022-05-22] MEDS ORDERED: IRON1CAP32 PO ×2 (07:06→18:30)
[2022-05-22] MEDS ORDERED: LIDOCAINE 5% PATCH TD (18:30)
[2022-05-22] MEDS ORDERED: HYDR-4068 PO (18:30)
[2022-05-22] MEDS ORDERED: KETO120S13 TP (18:30)
[2022-05-22] MEDS ORDERED: SODI1TAB4 PO (18:30)
[2022-05-22] MEDS ORDERED: ONDA-105 PO (18:30)
[2022-05-22] MEDS ORDERED: CYCL-309 PO (18:30)
[2022-05-27] MEDS ORDERED: ACET-2743 PO (10:44)
[2022-05-27] MEDS ORDERED: LEVO-70 PO (10:45)
== END 2022-05-16 14:32 | disposition home or self-care (01) ==
LOC: EDH 13:20
DX: S51.812A Laceration without foreign body of left forearm, initial encounter (principal); E11.9 Type 2 diabetes mellitus without complications; E78.00 Pure hypercholesterolemia, unspecified; I10 Essential (primary) hypertension; F17.200 Nicotine dependence, unspecified, uncomplicated; Z88.6 Allergy status to analgesic agent; Z86.73 Personal history of transient ischemic attack (TIA), and cerebral infarction without residual deficits; X58.XXXA Exposure to other specified factors, initial encounter; Y93.89 Activity, other specified; Y92.89 Other specified places as the place of occurrence of the external cause; Y99.8 Other external cause status

== ENCOUNTER 2022-06-06 10:36 | Emergency (ER) | payer MEDICARE ==
[~2022-06-06 10:36] MED LIST changes: +ACET-2743 PO; -ALBU18HF7 IH; -APIX2.5T PO; -ATOR40TA69 PO; +ATOR40TA71 PO; -CEPH500T PO; -CLOP75TA32 PO; +CYCL-309 PO; +HYDR-4068 PO; -HYDR-4153 PO; +IRON1CAP32 PO; +KETO120S13 TP; +LEVO-70 PO; +LIDOCAINE 5% PATCH TD; -LISI10TA24 PO; -METF-446 PO; -METO25TA6 PO; -OMEP20CA12 PO; +ONDA-105 PO; +PANT40TA54 PO; -PRED20TA3 PO; +QUET25TA36 PO; +SODI1TAB4 PO; +TEMA30CA PO
[2022-06-06 11:09] LABS: BASOPHILS % (AUTO) 0.1 % (0.0-5.0); EOSINOPHILS % (AUTO) 0.6 % (0.0-8.0); MEAN CORPUSCULAR HEMOGLOBIN 28.7 pg (27.0-33.0); MEAN CORPUSCULAR HGB CONC 33.5 g/dL (32.0-36.0); MEAN CORPUSCULAR VOLUME 85.8 fL (79-99); MONOCYTES % (AUTO) 3.9 % (3.0-13.0); PLATELET COUNT (AUTO) 442 K/uL (130-400); RED BLOOD CELL COUNT(AUTO) 3.03 MIL/uL (4.50-6.20); RED CELL DISTRIBUTION WIDTH 14.8 % (11.0-15.5); WHITE BLOOD COUNT (AUTO) 15.7 K/uL (4.8-10.8)
[2022-06-06 11:10] LABS: APPEARANCE,URINE CLEAR (CLEAR); BILIRUBIN,URINE NEGATIVE (NEGATIVE); COLOR,URINE COLORLESS (YELLOW); GLUCOSE, URINE (UA) NEGATIVE (NEGATIVE); KETONES,URINE NEGATIVE (NEGATIVE); LEUKOCYTE ESTERASE ,URINE NEGATIVE Leu/uL (NEGATIVE); NITRATE,URINE NEGATIVE (NEGATIVE); OCCULT BLOOD,URINE NEGATIVE (NEGATIVE); PROTEIN,URINE NEGATIVE (NEGATIVE); UROBILINOGEN,URINE 0.2 mg/dL (0.2-1.0)
[2022-06-06 11:21] LABS: ALBUMIN 2.6 g/dL (3.5-5.0); CREATININE 0.6 mg/dL (0.5-1.5); POTASSIUM 4.3 mmol/L (3.5-5.1); TOTAL PROTEIN, SERUM 5.9 g/dL (6.0-8.3)
[2022-06-06 11:39] LABS: BACTERIA,URINE RARE /HPF (None Seen); MUCUS,URINE RARE LPF (None Seen); SQUAMOUS EPITHELIAL CELL,UR RARE /HPF (0-2); WBC,URINE 0-1 /HPF (0-1)
[2022-06-06] MEDS ORDERED: AMOX1TAB16 PO (13:30)
[2022-06-06] MEDS ORDERED: ACETAMINOPHEN WITH CODEINE 1 TAB TAB PO ONE (13:30)
[2022-06-06] MEDS ORDERED: 0.9% NACL 500ML IV.SOLN 500 ML IV STA (13:32)
[2022-06-06 13:56] VITALS: BP 121/58
== END 2022-06-06 14:34 | disposition home or self-care (01) ==
LOC: EDH 10:36
DX: S22.31XA Fracture of one rib, right side, initial encounter for closed fracture (principal); J18.9 Pneumonia, unspecified organism; E87.1 Hypo-osmolality and hyponatremia; E11.9 Type 2 diabetes mellitus without complications; E78.00 Pure hypercholesterolemia, unspecified; I10 Essential (primary) hypertension; Z88.6 Allergy status to analgesic agent; Z79.899 Other long term (current) drug therapy; Z98.890 Other specified postprocedural states; W19.XXXA Unspecified fall, initial encounter; Y93.89 Activity, other specified; Y92.098 Other place in other non-institutional residence as the place of occurrence of the external cause; Y99.8 Other external cause status
CPT/HCPCS: 36415; 71101; 72100; 80053; 81001; 85025

== ENCOUNTER 2022-06-09 20:06 | Inpatient (IN) | payer MEDICARE ==
[~2022-06-09] VITALS: Ht 165.1 cm; Wt 75.3 kg
[~2022-06-09 20:06] MED LIST changes: +ALBU18HF7 IH; +AMOX1TAB16 PO; +APIX2.5T PO; +ATOR40TA69 PO; +CEPH500T PO; +CLOP75TA32 PO; +HYDR-4153 PO; +LISI10TA24 PO; +METF-446 PO; +METO25TA6 PO; +OMEP20CA12 PO; +PRED20TA3 PO
[2022-06-09 21:11] LABS: BASOPHILS % (AUTO) 0.3 % (0.0-5.0); EOSINOPHILS % (AUTO) 0.9 % (0.0-8.0); HEMATOCRIT 23.3 % (42-54); MEAN CORPUSCULAR HEMOGLOBIN 28.7 pg (27.0-33.0); MEAN CORPUSCULAR HGB CONC 34.8 g/dL (32.0-36.0); MEAN CORPUSCULAR VOLUME 82.6 fL (79-99); NEUTROPHILS % (AUTO) 66.9 % (40.0-77.0); PLATELET COUNT (AUTO) 473 K/uL (130-400); RED BLOOD CELL COUNT(AUTO) 2.82 MIL/uL (4.50-6.20); RED CELL DISTRIBUTION WIDTH 14.5 % (11.0-15.5); WHITE BLOOD COUNT (AUTO) 9.1 K/uL (4.8-10.8)
[2022-06-09 21:32] LABS: ALBUMIN 2.5 g/dL (3.5-5.0); CREATININE 0.6 mg/dL (0.5-1.5); TOTAL PROTEIN, SERUM 5.2 g/dL (6.0-8.3)
[2022-06-09 21:33] LABS: APPEARANCE,URINE CLEAR (CLEAR); BILIRUBIN,URINE NEGATIVE (NEGATIVE); COLOR,URINE COLORLESS (YELLOW); GLUCOSE, URINE (UA) NEGATIVE (NEGATIVE); KETONES,URINE NEGATIVE (NEGATIVE); LEUKOCYTE ESTERASE ,URINE NEGATIVE Leu/uL (NEGATIVE); NITRATE,URINE NEGATIVE (NEGATIVE); OCCULT BLOOD,URINE MODERATE (NEGATIVE); PROTEIN,URINE NEGATIVE (NEGATIVE); UROBILINOGEN,URINE 0.2 mg/dL (0.2-1.0)
[2022-06-09 21:39] LABS: MUCUS,URINE RARE LPF (None Seen); SQUAMOUS EPITHELIAL CELL,UR RARE /HPF (0-2)
[2022-06-09 22:09] LABS: POTASSIUM 4.3 mmol/L (3.5-5.1)
[2022-06-09 22:19] LABS: CREATININE,URINE RANDOM 22 mg/dL (30-135); SODIUM,URINE RANDOM 28 mmol/l (40-220)
[2022-06-09] MEDS ORDERED: ACETAMINOPHEN 325 MG TAB PO PRN (22:30)
[2022-06-09] MEDS ORDERED: 0.9%NACL 1000ML 1,000 ML IV SCH (22:30)
[2022-06-09] MEDS ORDERED: ASPIRIN 81MG CHEW TAB PO ONE (22:30)
[2022-06-10] VITALS (27 sets, daily range): BP systolic 90–148; BP diastolic 48–110
[2022-06-10] MEDS ORDERED: ASPIRIN 325MG EC TAB PO ONE
[2022-06-10] MEDS: NITROGLYCERIN 1GM OINT 1 INCH/1GM TD SCH ×4 (00:08→22:30)
[2022-06-10] MEDS ORDERED: HEPARIN 25,000 UNITS/250ML D5W 250 ML IV ONE (00:18)
[2022-06-10] MEDS ORDERED: HEPARIN 5,000 UNIT VIAL ONE (00:20)
[2022-06-10] MEDS ORDERED: DEXTROSE 50%-WATER 50 ML DISP.SYRIN IV PRN (01:00)
[2022-06-10] MEDS ORDERED: GLUCAGON 1MG KIT 1 MG ML IM PRN (01:00)
[2022-06-10 01:44] LABS: ABG BASE EXCESS -3.7 mmol/L (-2.0-3.0); ABG HCO3 18.6 mmol/L (21.0-28.0); ABG OXYGEN SATURATION 97.3 % (95.0-99.0); ABG PCO2 27 mmHg (35-48)
[2022-06-10 02:57] LABS: CREATININE 0.5 mg/dL (0.5-1.5); POTASSIUM 3.7 mmol/L (3.5-5.1)
[2022-06-10] MEDS: INSULIN HUMULIN R 100 UNIT/ML 3ML SQ SCH ×4 (06:27→21:00)
[2022-06-10 07:04] LABS: PROTHROMBIN TIME 10.9 SEC (9.6-11.6)
[2022-06-10 07:16] LABS: POTASSIUM 3.9 mmol/L (3.5-5.1)
[2022-06-10 07:17] LABS: CREATININE 0.5 mg/dL (0.5-1.5); PHOSPHORUS 3.4 mg/dL (2.5-4.9)
[2022-06-10 07:22] LABS: % IRON SATURATION 9.1 % (30-44)
[2022-06-10 07:22] LABS: BASOPHILS % (AUTO) 0.3 % (0.0-5.0); EOSINOPHILS % (AUTO) 2.3 % (0.0-8.0); HEMATOCRIT 26.7 % (42-54); LYMPHOCYTES % (AUTO) 25.9 % (21.0-51.0); MEAN CORPUSCULAR HEMOGLOBIN 28.7 pg (27.0-33.0); MEAN CORPUSCULAR HGB CONC 34.1 g/dL (32.0-36.0); MEAN CORPUSCULAR VOLUME 84.2 fL (79-99); MONOCYTES % (AUTO) 9.7 % (3.0-13.0); NEUTROPHILS % (AUTO) 60.2 % (40.0-77.0); PLATELET COUNT (AUTO) 470 K/uL (130-400); RED BLOOD CELL COUNT(AUTO) 3.17 MIL/uL (4.50-6.20); RED CELL DISTRIBUTION WIDTH 14.7 % (11.0-15.5); WHITE BLOOD COUNT (AUTO) 6.1 K/uL (4.8-10.8)
[2022-06-10 07:24] LABS: PARTIAL THROMBOPLASTIN TIME 124.3 SEC (26.3-35.5)
[2022-06-10] MEDS ORDERED: INSULIN HUMULIN R 100 UNIT/ML 3ML SQ SCH (07:30)
[2022-06-10] MEDS: IRON SUCROSE COMPLEX 100 MG/5 ML VIAL IVP SCH (08:20)
[2022-06-10] MEDS: FOLIC ACID 1 MG TABLET PO SCH (08:22)
[2022-06-10] MEDS: ASPIRIN 81MG CHEW TAB PO SCH (08:22)
[2022-06-10] MEDS: THIAMINE HCL 100 MG TABLET PO SCH (08:22)
[2022-06-10] MEDS: FAMOTIDINE 20MG TAB PO SCH (08:22)
[2022-06-10] MEDS ORDERED: SODIUM CHLORIDE 1,000 MG TAB PO SCH (09:00)
[2022-06-10] MEDS ORDERED: ENOXAPARIN SODIUM 40 MG/0.4 ML SYRINGE SQ SCH (09:00)
[2022-06-10] MEDS ORDERED: IRON SUCROSE COMPLEX 200 MG in 0.9%NACL 50ML 50 ML IV SCH (09:00)
[2022-06-10] MEDS: ATORVASTATIN 40 MG TABLET PO SCH ×2 (10:00→20:59)
[2022-06-10] MEDS ORDERED: KETOCONAZOLE TP PRN (10:00)
[2022-06-10] MEDS: IPRATROPIUM/ALBUTEROL SULFATE 3 ML SOLUTION IH SCH ×3 (11:11→23:17)
[2022-06-10] MEDS: SACUBITRIL/VALSARTAN 1 EACH TABLET PO SCH (11:32)
[2022-06-10] MEDS: METOPROLOL SUCCINATE 50 MG TAB.SR.24H PO SCH (11:33)
[2022-06-10] MEDS: CLOPIDOGREL 75MG TAB PO SCH (11:33)
[2022-06-10] MEDS ORDERED: SODIUM CHLORIDE 3% FOR INHALATION 4 ML/AMP VIAL.NEB IH SCH (12:00)
[2022-06-10 13:51] LABS: CREATININE 0.6 mg/dL (0.5-1.5); POTASSIUM 4.2 mmol/L (3.5-5.1)
[2022-06-10 14:00] LABS: URIC ACID 3.7 mg/dL (2.6-7.2)
[2022-06-10 14:01] LABS: THYROID STIMULATING HORMONE 1.16 uIU/mL (0.36-3.74)
[2022-06-10 14:15] LABS: APPEARANCE,URINE CLEAR (CLEAR); BILIRUBIN,URINE NEGATIVE (NEGATIVE); COLOR,URINE COLORLESS (YELLOW); GLUCOSE, URINE (UA) NEGATIVE (NEGATIVE); KETONES,URINE 10 mg/dL (NEGATIVE); LEUKOCYTE ESTERASE ,URINE NEGATIVE Leu/uL (NEGATIVE); NITRATE,URINE 1+ (NEGATIVE); OCCULT BLOOD,URINE NEGATIVE (NEGATIVE); PH,URINE 6.5 (5.0-8.0); PROTEIN,URINE NEGATIVE (NEGATIVE); UROBILINOGEN,URINE 0.2 mg/dL (0.2-1.0)
[2022-06-10 14:17] LABS: CREATININE,URINE RANDOM 16 mg/dL (30-135); POTASSIUM,URINE RANDOM 11 mmol/L (25-125); SODIUM,URINE RANDOM 45 mmol/l (40-220)
[2022-06-10 14:36] LABS: BACTERIA,URINE FEW /HPF (None Seen); MUCUS,URINE RARE LPF (None Seen); RBC,URINE 0-1 /HPF (0-1)
[2022-06-10] MEDS: SODIUM CHLORIDE 1,000 MG TAB PO SCH ×2 (14:38→20:59)
[2022-06-10 19:07] LABS: CREATININE 0.6 mg/dL (0.5-1.5); POTASSIUM 3.9 mmol/L (3.5-5.1)
[2022-06-10] MEDS: CYCLOBENZAPRINE HCL 10 MG TABLET PO SCH (20:59)
[2022-06-10] MEDS: ACETAMINOPHEN 325 MG TAB PO PRN (21:00)
[2022-06-10] MEDS: TEMAZEPAM 15 MG CAPSULE PO SCH (21:00)
[2022-06-10] MEDS ORDERED: HEPARIN 25,000 UNITS/250ML D5W 250 ML IV SCH (21:30)
[2022-06-11] VITALS (8 sets, daily range): BP systolic 81–101; BP diastolic 53–77
[2022-06-11 01:03] LABS: CREATININE 0.7 mg/dL (0.5-1.5); POTASSIUM 3.9 mmol/L (3.5-5.1)
[2022-06-11] MEDS: MAGNESIUM 2GM PREMIX 50ML 50 ML IV PRN ×2 (02:16→10:17)
[2022-06-11] MEDS: NITROGLYCERIN 1GM OINT 1 INCH/1GM TD SCH ×3 (05:49→22:30)
[2022-06-11] MEDS: INSULIN HUMULIN R 100 UNIT/ML 3ML SQ SCH ×4 (06:22→22:11)
[2022-06-11] MEDS: IPRATROPIUM/ALBUTEROL SULFATE 3 ML SOLUTION IH SCH ×3 (06:32→21:21)
[2022-06-11 06:55] LABS: HEMATOCRIT 25.5 % (42-54); MEAN CORPUSCULAR HEMOGLOBIN 28.7 pg (27.0-33.0); MEAN CORPUSCULAR HGB CONC 33.3 g/dL (32.0-36.0); MEAN CORPUSCULAR VOLUME 86.1 fL (79-99); RED BLOOD CELL COUNT(AUTO) 2.96 MIL/uL (4.50-6.20); RED CELL DISTRIBUTION WIDTH 15.4 % (11.0-15.5)
[2022-06-11 08:19] LABS: CREATININE 0.7 mg/dL (0.5-1.5); MAGNESIUM 1.4 mg/dL (1.80-2.40); POTASSIUM 4.2 mmol/L (3.5-5.1)
[2022-06-11] MEDS: THIAMINE HCL 100 MG TABLET PO SCH (10:17)
[2022-06-11] MEDS: CLOPIDOGREL 75MG TAB PO SCH (10:17)
[2022-06-11] MEDS: TAMSULOSIN HCL 0.4 MG CAP.ER.24H PO SCH (10:17)
[2022-06-11] MEDS: SACUBITRIL/VALSARTAN 1 EACH TABLET PO SCH (10:17)
[2022-06-11] MEDS: FOLIC ACID 1 MG TABLET PO SCH (10:17)
[2022-06-11] MEDS: SODIUM CHLORIDE 1,000 MG TAB PO SCH ×3 (10:18→20:41)
[2022-06-11] MEDS: METOPROLOL SUCCINATE 50 MG TAB.SR.24H PO SCH (10:18)
[2022-06-11] MEDS: ASPIRIN 81MG CHEW TAB PO SCH (10:18)
[2022-06-11] MEDS: FAMOTIDINE 20MG TAB PO SCH (10:18)
[2022-06-11] MEDS: CYCLOBENZAPRINE HCL 10 MG TABLET PO SCH ×2 (10:18→20:41)
[2022-06-11] MEDS: MONTELUKAST SODIUM 10 MG TAB PO SCH (10:18)
[2022-06-11] MEDS: IRON SUCROSE COMPLEX 100 MG/5 ML VIAL IVP SCH (10:18)
[2022-06-11] MEDS: QUETIAPINE FUMARATE 25 MG TAB PO SCH (10:18)
[2022-06-11 13:47] LABS: CREATININE 0.6 mg/dL (0.5-1.5)
[2022-06-11] MEDS: ACETAMINOPHEN 325 MG TAB PO PRN ×2 (13:47→20:44)
[2022-06-11 18:23] LABS: CREATININE 0.8 mg/dL (0.5-1.5)
[2022-06-11] MEDS: ATORVASTATIN 40 MG TABLET PO SCH (20:41)
[2022-06-11] MEDS: LIDOCAINE 5% TOPICAL PATCH TP SCH (20:41)
[2022-06-11] MEDS: TEMAZEPAM 15 MG CAPSULE PO SCH (20:42)
[2022-06-12 03:10] VITALS: BP 122/51
[2022-06-12] MEDS: INSULIN HUMULIN R 100 UNIT/ML 3ML SQ SCH ×2 (05:49→11:30)
[2022-06-12] MEDS: NITROGLYCERIN 1GM OINT 1 INCH/1GM TD SCH ×2 (05:49→06:19)
[2022-06-12] MEDS: IPRATROPIUM/ALBUTEROL SULFATE 3 ML SOLUTION IH SCH ×2 (06:58→11:02)
[2022-06-12 07:38] VITALS: BP 111/60
[2022-06-12] MEDS: METOPROLOL SUCCINATE 50 MG TAB.SR.24H PO SCH (09:02)
[2022-06-12] MEDS: MONTELUKAST SODIUM 10 MG TAB PO SCH (09:02)
[2022-06-12] MEDS: FAMOTIDINE 20MG TAB PO SCH (09:02)
[2022-06-12] MEDS: TAMSULOSIN HCL 0.4 MG CAP.ER.24H PO SCH (09:02)
[2022-06-12] MEDS: THIAMINE HCL 100 MG TABLET PO SCH (09:02)
[2022-06-12] MEDS: SODIUM CHLORIDE 1,000 MG TAB PO SCH (09:02)
[2022-06-12] MEDS: QUETIAPINE FUMARATE 25 MG TAB PO SCH (09:02)
[2022-06-12] MEDS: CLOPIDOGREL 75MG TAB PO SCH (09:02)
[2022-06-12] MEDS: IRON SUCROSE COMPLEX 100 MG/5 ML VIAL IVP SCH (09:03)
[2022-06-12] MEDS: CYCLOBENZAPRINE HCL 10 MG TABLET PO SCH (09:03)
[2022-06-12] MEDS: FOLIC ACID 1 MG TABLET PO SCH (09:03)
[2022-06-12] MEDS: LIDOCAINE 5% TOPICAL PATCH TP SCH (09:03)
[2022-06-12] MEDS: ASPIRIN 81MG CHEW TAB PO SCH (09:03)
[2022-06-12] MEDS: SACUBITRIL/VALSARTAN 1 EACH TABLET PO SCH (09:04)
[2022-06-12] MEDS: MAGNESIUM 2GM PREMIX 50ML 50 ML IV PRN (09:15)
[2022-06-12 11:01] VITALS: BP 104/61
[2022-06-12] MEDS ORDERED: LIDOCAINE 5% TOPICAL PATCH TP SCH (21:00)
== END 2022-06-12 12:12 | disposition home or self-care (01) | DRG 640 ==
LOC: EDH 20:06 → EDHIP 22:18 → 2CH 06-10 01:04 → 2DH 06-10 17:22
PROVIDERS: ADMIT Internal Medicine; ATTEND Internal Medicine
DX: E87.1 Hypo-osmolality and hyponatremia (principal); I21.A1 Myocardial infarction type 2; N39.0 Urinary tract infection, site not specified; I69.351 Hemiplegia and hemiparesis following cerebral infarction affecting right dominant side; I25.810 Atherosclerosis of coronary artery bypass graft(s) without angina pectoris; I50.42 Chronic combined systolic (congestive) and diastolic (congestive) heart failure; E86.0 Dehydration; I11.0 Hypertensive heart disease with heart failure; R29.6 Repeated falls; F10.229 Alcohol dependence with intoxication, unspecified; I25.10 Atherosclerotic heart disease of native coronary artery without angina pectoris; D50.9 Iron deficiency anemia, unspecified; E11.65 Type 2 diabetes mellitus with hyperglycemia; H54.8 Legal blindness, as defined in USA; N40.0 Benign prostatic hyperplasia without lower urinary tract symptoms; J44.9 Chronic obstructive pulmonary disease, unspecified; E78.00 Pure hypercholesterolemia, unspecified; W06.XXXA Fall from bed, initial encounter; Y93.89 Activity, other specified; Y92.89 Other specified places as the place of occurrence of the external cause; Y99.8 Other external cause status; Z91.199 Patient's noncompliance with other medical treatment and regimen due to unspecified reason; Z91.81 History of falling; Z98.61 Coronary angioplasty status; Z79.899 Other long term (current) drug therapy
CPT/HCPCS: 36415; 36600; 70450; 71045; 71101; 72100; 72125; 74230; 80048; 80053; 81001; 82140; 82570; 82803; 82948; 83036; 83540; 83550; 83735; 83880; 83930; 83935; 84100; 84133; 84295; 84300; 84443; 84484; 84550; 85025; 85027; 85610; 85730; 86850; 86900; 86901; 87077; 87088; 87186; 92610; 92611; 93005; 93306; 94640; 94664; 94667; 94668; 97039; 99291; G0378; J1644; J1756; J1815; J3475

== ENCOUNTER 2022-06-14 04:01 | Inpatient (IN) | payer MEDICARE ==
[~2022-06-14] VITALS: Ht 165.1 cm; Wt 76.0 kg
[~2022-06-14 04:01] MED LIST changes: -ALBU18HF7 IH; -APIX2.5T PO; -ATOR40TA69 PO; -CEPH500T PO; -CLOP75TA32 PO; -HYDR-4153 PO; -LISI10TA24 PO; -METF-446 PO; -METO25TA6 PO; -OMEP20CA12 PO; -PRED20TA3 PO
[2022-06-14 05:54] LABS: BASOPHILS % (AUTO) 0.8 % (0.0-5.0); EOSINOPHILS % (AUTO) 3.2 % (0.0-8.0); HEMATOCRIT 26.8 % (42-54); LYMPHOCYTES % (AUTO) 27.1 % (21.0-51.0); MEAN CORPUSCULAR HEMOGLOBIN 29.1 pg (27.0-33.0); MEAN CORPUSCULAR HGB CONC 33.2 g/dL (32.0-36.0); MEAN CORPUSCULAR VOLUME 87.6 fL (79-99); MONOCYTES % (AUTO) 7.9 % (3.0-13.0); NEUTROPHILS % (AUTO) 60.1 % (40.0-77.0); PLATELET COUNT (AUTO) 361 K/uL (130-400); RED BLOOD CELL COUNT(AUTO) 3.06 MIL/uL (4.50-6.20); RED CELL DISTRIBUTION WIDTH 16.6 % (11.0-15.5); WHITE BLOOD COUNT (AUTO) 7.6 K/uL (4.8-10.8)
[2022-06-14 06:10] LABS: ALANINE AMINOTRANSFERASE 23 U/L (12-78); ALCOHOL, BLOOD < 3 mg/dL (0-10); ASPARTATE AMINOTRANSFERASE 37 U/L (10-37); CARBON DIOXIDE 23 mmol/L (21-32); CREATININE 0.9 mg/dL (0.5-1.5); GLOMERULAR FILTR. RATE CALC 90 mL/min (>60); GLUCOSE,RANDOM 116 mg/dL (70-105); POTASSIUM 4.9 mmol/L (3.5-5.1); SODIUM SERUM 119 mmol/L (136-145); TOTAL PROTEIN, SERUM 6.9 g/dL (6.0-8.3); UREA NITROGEN, BLOOD 16 mg/dL (7-18)
[2022-06-14 06:15] LABS: CHLORIDE 89 mmol/L (101-111)
[2022-06-14 06:40] LABS: APPEARANCE,URINE CLEAR (CLEAR); BILIRUBIN,URINE NEGATIVE (NEGATIVE); COLOR,URINE YELLOW (YELLOW); GLUCOSE, URINE (UA) NEGATIVE (NEGATIVE); KETONES,URINE NEGATIVE (NEGATIVE); LEUKOCYTE ESTERASE ,URINE TRACE Leu/uL (NEGATIVE); NITRATE,URINE NEGATIVE (NEGATIVE); OCCULT BLOOD,URINE NEGATIVE (NEGATIVE); PROTEIN,URINE NEGATIVE (NEGATIVE); UROBILINOGEN,URINE 0.2 mg/dL (0.2-1.0)
[2022-06-14] MEDS: MAGNESIUM 2GM PREMIX 50ML 50 ML IV SCH (06:58)
[2022-06-14] MEDS ORDERED: LACTULOSE 20 GM/30 ML UDCUP PO PRN (07:00)
[2022-06-14] MEDS ORDERED: MORPHINE 2 MG SYG IV PRN (07:00)
[2022-06-14] MEDS ORDERED: 0.9% NACL 250ML 250 ML IV SCH (07:00)
[2022-06-14] MEDS ORDERED: GUAIFENESIN-DM 200/20 MG 10 ML PO PRN (07:00)
[2022-06-14] MEDS ORDERED: ACETAMINOPHEN 325 MG TAB PO PRN ×2 (07:00)
[2022-06-14] MEDS ORDERED: NITROGLYCERIN 0.4 MG SL TAB SL PRN (07:00)
[2022-06-14] MEDS ORDERED: 0.9%NACL 1000ML 1,000 ML IV SCH (07:00)
[2022-06-14] MEDS ORDERED: ONDANSETRON 4MG INJ IV PRN (07:00)
[2022-06-14] MEDS ORDERED: HEPARIN 25,000 UNITS/250ML D5W 250 ML IV SCH (07:00)
[2022-06-14] MEDS ORDERED: PHARMACY COMMUNICATION MISC PRN (07:30)
[2022-06-14] MEDS ORDERED: MAGNESIUM 2GM PREMIX 50ML 50 ML IV PRN (07:30)
[2022-06-14] MEDS ORDERED: PROMETHAZINE HCL 25 MG TABLET PO PRN (07:30)
[2022-06-14] MEDS ORDERED: CHLORDIAZEPOXIDE HCL 25 MG CAP PO PRN (07:30)
[2022-06-14] MEDS ORDERED: LORAZEPAM 2 MG/ML 1 ML VIAL IVP PRN (07:30)
[2022-06-14 08:01] LABS: RBC,URINE None Seen /HPF (0-1)
[2022-06-14 08:02] LABS: BACTERIA,URINE Few /HPF (None Seen); SQUAMOUS EPITHELIAL CELL,UR 0-2 /HPF (0-2); YEAST,URINE BUDDING Few /HPF (None Seen)
[2022-06-14 09:23] LABS: INR 1.05 (0.85-1.15); PROTHROMBIN TIME 11.4 SEC (9.6-11.6)
[2022-06-14 09:24] LABS: ALBUMIN 2.6 g/dL (3.5-5.0); BILIRUBIN,DIRECT 0.1 mg/dL (0.0-0.3); TOTAL PROTEIN, SERUM 6.1 g/dL (6.0-8.3)
[2022-06-14] MEDS: FOLIC ACID 1 MG TABLET PO SCH (10:00)
[2022-06-14] MEDS: ACETAMINOPHEN WITH CODEINE 1 TAB TAB PO PRN ×2 (10:00→18:36)
[2022-06-14] MEDS: THIAMINE HCL 100 MG/ML 2ML VIAL IM SCH (10:01)
[2022-06-14] MEDS: MULTIVITAMIN TABLET PO SCH (10:01)
[2022-06-14] MEDS: METOPROLOL TARTRATE 25 MG TAB PO SCH ×2 (10:01→20:39)
[2022-06-14] MEDS: FAMOTIDINE 20MG TAB PO SCH ×2 (10:01→20:39)
[2022-06-14] MEDS: 0.9%NACL 1000ML 1,000 ML IV SCH ×2 (10:13→20:39)
[2022-06-14 11:20] VITALS: BP 117/81
[2022-06-14 16:00] VITALS: BP 127/82
[2022-06-14 20:00] VITALS: BP 119/77
[2022-06-14] MEDS: ATORVASTATIN 20 MG TABLET PO SCH (20:39)
[2022-06-15] VITALS: BP 118/63
[2022-06-15] MEDS: ACETAMINOPHEN WITH CODEINE 1 TAB TAB PO PRN ×3 (02:07→17:40)
[2022-06-15 04:00] VITALS: BP 126/69
[2022-06-15 05:19] LABS: MAGNESIUM 1.3 mg/dL (1.80-2.40); URIC ACID 3.2 mg/dL (2.6-7.2)
[2022-06-15] MEDS: MAGNESIUM 2GM PREMIX 50ML 50 ML IV SCH (05:25)
[2022-06-15 08:00] VITALS: BP 127/61
[2022-06-15] MEDS: THIAMINE HCL 100 MG/ML 2ML VIAL IM SCH (08:25)
[2022-06-15] MEDS: METOPROLOL TARTRATE 25 MG TAB PO SCH ×2 (08:25→20:54)
[2022-06-15] MEDS: FOLIC ACID 1 MG TABLET PO SCH (08:25)
[2022-06-15] MEDS: MULTIVITAMIN TABLET PO SCH (08:25)
[2022-06-15] MEDS: 0.9%NACL 1000ML 1,000 ML IV SCH ×2 (08:26→23:22)
[2022-06-15] MEDS: FAMOTIDINE 20MG TAB PO SCH ×2 (08:26→20:54)
[2022-06-15 12:00] VITALS: BP 129/57
[2022-06-15 16:30] VITALS: BP 134/49
[2022-06-15 20:00] VITALS: BP 130/86
[2022-06-15] MEDS: ATORVASTATIN 20 MG TABLET PO SCH (20:54)
[2022-06-16] VITALS: BP 133/79
[2022-06-16] MEDS: ACETAMINOPHEN WITH CODEINE 1 TAB TAB PO PRN ×5 (00:43→20:56)
[2022-06-16 04:00] VITALS: BP 123/74
[2022-06-16 07:30] VITALS: BP 122/56
[2022-06-16] MEDS: THIAMINE HCL 100 MG/ML 2ML VIAL IM SCH (08:33)
[2022-06-16] MEDS: MULTIVITAMIN TABLET PO SCH (08:33)
[2022-06-16] MEDS: FAMOTIDINE 20MG TAB PO SCH ×2 (08:33→20:57)
[2022-06-16] MEDS: METOPROLOL TARTRATE 25 MG TAB PO SCH (08:33)
[2022-06-16] MEDS: FOLIC ACID 1 MG TABLET PO SCH (08:33)
[2022-06-16 09:08] LABS: MAGNESIUM 1.2 mg/dL (1.80-2.40)
[2022-06-16 11:00] VITALS: BP 118/37
[2022-06-16] MEDS: 0.9%NACL 1000ML 1,000 ML IV SCH (11:42)
[2022-06-16] MEDS: MAGNESIUM 2GM PREMIX 50ML 50 ML IV SCH (11:49)
[2022-06-16] MEDS ORDERED: SPIRONOLACTONE 25 MG TAB PO SCH (12:41)
[2022-06-16] MEDS ORDERED: BUMETANIDE 1 MG TAB PO SCH (12:45)
[2022-06-16 13:15] LABS: BASOPHILS % (AUTO) 1.1 % (0.0-5.0); HEMATOCRIT 24.3 % (42-54); LYMPHOCYTES % (AUTO) 32.3 % (21.0-51.0); MEAN CORPUSCULAR HEMOGLOBIN 29.4 pg (27.0-33.0); MEAN CORPUSCULAR HGB CONC 32.5 g/dL (32.0-36.0); MEAN CORPUSCULAR VOLUME 90.3 fL (79-99); NEUTROPHILS % (AUTO) 50.9 % (40.0-77.0); PLATELET COUNT (AUTO) 298 K/uL (130-400); RED BLOOD CELL COUNT(AUTO) 2.69 MIL/uL (4.50-6.20); WHITE BLOOD COUNT (AUTO) 4.4 K/uL (4.8-10.8)
[2022-06-16 13:22] LABS: INR 0.99 (0.85-1.15); PROTHROMBIN TIME 10.8 SEC (9.6-11.6)
[2022-06-16 13:23] LABS: PARTIAL THROMBOPLASTIN TIME 27.2 SEC (26.3-35.5)
[2022-06-16 13:31] LABS: B-TYPE NATRIURETIC PEPTIDE 2050 pg/mL (0-100)
[2022-06-16 13:32] LABS: ALBUMIN 2.3 g/dL (3.5-5.0); CARBON DIOXIDE 26 mmol/L (21-32); CHLORIDE 97 mmol/L (101-111); CREATININE 0.8 mg/dL (0.5-1.5); GLOMERULAR FILTR. RATE CALC 103 mL/min (>60); GLUCOSE,RANDOM 212 mg/dL (70-105); PHOSPHORUS 4.2 mg/dL (2.5-4.9); POTASSIUM 4.7 mmol/L (3.5-5.1); SODIUM SERUM 128 mmol/L (136-145); UREA NITROGEN, BLOOD 6 mg/dL (7-18)
[2022-06-16 14:02] LABS: % IRON SATURATION 15.7 % (30-44)
[2022-06-16 14:11] LABS: URIC ACID 2.5 mg/dL (2.6-7.2)
[2022-06-16 14:12] LABS: THYROID STIMULATING HORMONE 2.05 uIU/mL (0.36-3.74)
[2022-06-16 16:00] VITALS: BP 116/47
[2022-06-16] MEDS ORDERED: IRON SUCROSE COMPLEX 200 MG in 0.9%NACL 50ML 50 ML IV SCH (16:30)
[2022-06-16] MEDS ORDERED: EPOETIN ALFA-EPBX (NON-ESRD) 10,000 UNIT/ML VIAL SQ SCH (16:30)
[2022-06-16] MEDS ORDERED: IRON SUCROSE COMPLEX 100 MG/5 ML VIAL IVP SCH (17:00)
[2022-06-16 20:00] VITALS: BP 129/73
[2022-06-16] MEDS: ATORVASTATIN 20 MG TABLET PO SCH (20:56)
[2022-06-16] MEDS: CARVEDILOL 3.125 MG TABLET PO SCH (20:57)
[2022-06-16] MEDS: BISACODYL 5 MG TABLET.DR PO SCH (20:57)
[2022-06-16] MEDS: NYSTATIN-TRIAMCINOLONE CREAM 15 GM TP SCH (20:58)
[2022-06-16] MEDS ORDERED: BISACODYL 5 MG TABLET.DR PO SCH (21:00)
[2022-06-17] VITALS: BP 148/79
[2022-06-17 04:00] VITALS: BP 135/90
[2022-06-17 04:59] LABS: BASOPHILS % (AUTO) 1.1 % (0.0-5.0); EOSINOPHILS % (AUTO) 1.4 % (0.0-8.0); HEMATOCRIT 32.5 % (42-54); MEAN CORPUSCULAR HEMOGLOBIN 28.9 pg (27.0-33.0); MEAN CORPUSCULAR HGB CONC 31.7 g/dL (32.0-36.0); MEAN CORPUSCULAR VOLUME 91.3 fL (79-99); MONOCYTES % (AUTO) 10.3 % (3.0-13.0); NEUTROPHILS % (AUTO) 68.3 % (40.0-77.0); PLATELET COUNT (AUTO) 389 K/uL (130-400); RED BLOOD CELL COUNT(AUTO) 3.56 MIL/uL (4.50-6.20); RED CELL DISTRIBUTION WIDTH 18.2 % (11.0-15.5)
[2022-06-17 05:16] LABS: CREATININE 0.8 mg/dL (0.5-1.5); MAGNESIUM 1.2 mg/dL (1.80-2.40); POTASSIUM 4.2 mmol/L (3.5-5.1)
[2022-06-17] MEDS: ACETAMINOPHEN WITH CODEINE 1 TAB TAB PO PRN ×2 (05:43→12:50)
[2022-06-17 07:30] VITALS: BP 120/67
[2022-06-17] MEDS ORDERED: BUMETANIDE 1 MG TAB PO SCH (09:00)
[2022-06-17] MEDS ORDERED: MAGNESIUM CHLORIDE 70 MG TABLET.SA PO SCH (09:00)
[2022-06-17] MEDS ORDERED: SPIRONOLACTONE 25 MG TAB PO SCH (09:00)
[2022-06-17] MEDS: BISACODYL 5 MG TABLET.DR PO SCH (09:09)
[2022-06-17] MEDS: FAMOTIDINE 20MG TAB PO SCH (09:10)
[2022-06-17] MEDS: CARVEDILOL 3.125 MG TABLET PO SCH (09:10)
[2022-06-17] MEDS: MULTIVITAMIN TABLET PO SCH (09:10)
[2022-06-17] MEDS: NYSTATIN-TRIAMCINOLONE CREAM 15 GM TP SCH (09:10)
[2022-06-17 11:00] VITALS: BP 119/55
[2022-06-17] MEDS ORDERED: SPIR25TA6 PO (12:09)
[2022-06-17] MEDS ORDERED: CARV3.1262 PO (12:09)
[2022-06-17] MEDS ORDERED: TAMS-1 PO (12:09)
[2022-06-17] MEDS ORDERED: ATOR40TA71 PO (12:09)
[2022-06-17] MEDS ORDERED: BUME1TAB6 PO (12:09)
[2022-06-17] MEDS ORDERED: Magnesium Chloride PO (12:09)
== END 2022-06-17 13:15 | disposition home or self-care (01) | DRG 183 ==
LOC: EDH 04:01 → EDHIP 06:55 → 4CH 11:43
PROVIDERS: ADMIT Internal Medicine; ATTEND Internal Medicine
DX: S22.41XA Multiple fractures of ribs, right side, initial encounter for closed fracture (principal); E43 Unspecified severe protein-calorie malnutrition; I21.4 Non-ST elevation (NSTEMI) myocardial infarction; E87.1 Hypo-osmolality and hyponatremia; I25.810 Atherosclerosis of coronary artery bypass graft(s) without angina pectoris; I50.22 Chronic systolic (congestive) heart failure; Z53.29 Procedure and treatment not carried out because of patient's decision for other reasons; D64.9 Anemia, unspecified; E11.9 Type 2 diabetes mellitus without complications; E78.5 Hyperlipidemia, unspecified; E83.42 Hypomagnesemia; E86.9 Volume depletion, unspecified; F10.229 Alcohol dependence with intoxication, unspecified; H54.8 Legal blindness, as defined in USA; I11.0 Hypertensive heart disease with heart failure; J44.9 Chronic obstructive pulmonary disease, unspecified; N19 Unspecified kidney failure; N40.0 Benign prostatic hyperplasia without lower urinary tract symptoms; R29.6 Repeated falls; Z98.61 Coronary angioplasty status; Z91.81 History of falling; I25.2 Old myocardial infarction; Z91.199 Patient's noncompliance with other medical treatment and regimen due to unspecified reason; Z86.73 Personal history of transient ischemic attack (TIA), and cerebral infarction without residual deficits; Z79.899 Other long term (current) drug therapy; Z68.27 Body mass index [BMI] 27.0-27.9, adult
CPT/HCPCS: 36415; 70450; 71045; 74176; 80048; 80053; 80076; 81001; 82040; 82728; 82746; 82948; 83540; 83550; 83735; 83880; 83930; 83935; 84100; 84132; 84295; 84300; 84443; 84484; 84550; 85025; 85045; 85610; 85730; 93005; G0378; J1644; J1756; J3411; J3475; J7030; J7050

== ENCOUNTER 2022-08-14 14:58 | Emergency (ER) | payer MEDICARE ==
[~2022-08-14] VITALS: Ht 167.6 cm; Wt 68.0 kg
[~2022-08-14 14:58] MED LIST changes: -AMOX1TAB16 PO; +BUME1TAB6 PO; +CARV3.1262 PO; -CYCL-309 PO; -HYDR-4068 PO; -KETO120S13 TP; -LEVO-70 PO; +Magnesium Chloride PO; -ONDA-105 PO; -QUET25TA36 PO; -SODI1TAB4 PO; +SPIR25TA6 PO; -TEMA30CA PO
[2022-08-14 15:32] LABS: BASOPHILS % (AUTO) 0.6 % (0.0-5.0); EOSINOPHILS % (AUTO) 1.9 % (0.0-8.0); HEMATOCRIT 36.6 % (42-54); LYMPHOCYTES % (AUTO) 36.2 % (21.0-51.0); MEAN CORPUSCULAR HEMOGLOBIN 30.4 pg (27.0-33.0); MEAN CORPUSCULAR HGB CONC 35.2 g/dL (32.0-36.0); MEAN CORPUSCULAR VOLUME 86.3 fL (79-99); MONOCYTES % (AUTO) 5.3 % (3.0-13.0); PLATELET COUNT (AUTO) 486 K/uL (130-400); RED BLOOD CELL COUNT(AUTO) 4.24 MIL/uL (4.50-6.20); RED CELL DISTRIBUTION WIDTH 15.1 % (11.0-15.5); WHITE BLOOD COUNT (AUTO) 10.9 K/uL (4.8-10.8)
[2022-08-14 15:57] LABS: ALBUMIN 3.8 g/dL (3.5-5.0); CREATININE 0.9 mg/dL (0.5-1.5); POTASSIUM 3.7 mmol/L (3.5-5.1)
[2022-08-14] MEDS ORDERED: 0.9%NACL 1000ML 1,000 ML IV ONE ×2 (16:58→17:00)
[2022-08-14 17:42] VITALS: BP 135/64
[2022-08-30] MEDS ORDERED: GABA600T10 PO (11:50)
[2022-08-30] MEDS ORDERED: ZOLP5TAB8 PO (11:50)
[2022-08-30] MEDS ORDERED: PANT40TA PO (11:50)
[2022-08-30] MEDS ORDERED: MONT-39 PO (11:50)
[2022-08-30] MEDS ORDERED: TAMS-1 PO (11:50)
[2022-08-30] MEDS ORDERED: ATOR40TA69 PO (11:50)
[2022-08-30] MEDS ORDERED: CARV3.12 PO (11:50)
[2022-08-31] MEDS ORDERED: LISI1TAB53 PO (13:02)
[2022-08-31] MEDS ORDERED: HYDR-4153 PO (13:04)
[2022-08-31] MEDS ORDERED: CYCL-309 PO (13:08)
[2022-08-31] MEDS ORDERED: HYDR-4068 PO (13:08)
[2022-08-31] MEDS ORDERED: NITR0.4T50 SL (13:08)
[2022-09-01] MEDS ORDERED: NACL1 PO (06:58)
== END 2022-08-14 18:35 | disposition home or self-care (01) ==
LOC: EDH 14:58
DX: E86.0 Dehydration (principal); M94.0 Chondrocostal junction syndrome [Tietze]; E11.9 Type 2 diabetes mellitus without complications; I11.9 Hypertensive heart disease without heart failure; F17.200 Nicotine dependence, unspecified, uncomplicated; Z79.899 Other long term (current) drug therapy; Z88.6 Allergy status to analgesic agent; Z95.1 Presence of aortocoronary bypass graft; Z98.890 Other specified postprocedural states
CPT/HCPCS: 99285; 96360; 71045; 84484; 80053; 85025; 36415; 93005 ×2; J7030

== ENCOUNTER 2022-08-22 20:35 | Emergency (ER) | payer MEDICARE ==
[~2022-08-22] VITALS: Ht 165.1 cm; Wt 64.4 kg
[2022-08-22] MEDS ORDERED: CEPH PO (21:34)
[2022-08-23 08:38] VITALS: BP 121/65
== END 2022-08-23 08:50 | disposition home or self-care (01) ==
LOC: EDH 20:35
DX: L03.311 Cellulitis of abdominal wall (principal); E11.9 Type 2 diabetes mellitus without complications; E78.00 Pure hypercholesterolemia, unspecified; I10 Essential (primary) hypertension; Z79.899 Other long term (current) drug therapy; Z98.890 Other specified postprocedural states

== ENCOUNTER → 2022-12-03 | Outpatient (CLI) | payer MEDICARE ==
[~2022-12-03] VITALS: Ht 165.1 cm; Wt 75.7 kg
[~2022-12-03] MED LIST changes: +0.9%NACL 1000ML 1,000 ML IV ONE; -ACET-2743 PO; +ATOR40TA69 PO; -ATOR40TA71 PO; -BUME1TAB6 PO; +CARV3.12 PO; -CARV3.1262 PO; +CYCL-309 PO; +GABA600T10 PO; +HYDR-4068 PO; +HYDR-4153 PO; -IRON1CAP32 PO; -LIDOCAINE 5% PATCH TD; +LISI1TAB53 PO; -Magnesium Chloride PO; +NACL1 PO; +NITR0.4T50 SL; +PANT40TA PO; -PANT40TA54 PO; +SODI100037 PO; -SPIR25TA6 PO; +ZOLP5TAB8 PO
[2022-12-03 13:12] LABS: BASOPHILS % (AUTO) 0.5 % (0.0-5.0); EOSINOPHILS % (AUTO) 2.5 % (0.0-8.0); LYMPHOCYTES % (AUTO) 42.1 % (21.0-51.0); MEAN CORPUSCULAR HEMOGLOBIN 35.1 pg (27.0-33.0); MEAN CORPUSCULAR HGB CONC 36.6 g/dL (32.0-36.0); MEAN CORPUSCULAR VOLUME 95.9 fL (79-99); MONOCYTES % (AUTO) 10.3 % (3.0-13.0); NEUTROPHILS % (AUTO) 44.1 % (40.0-77.0); PLATELET COUNT (AUTO) 255 K/uL (130-400); RED BLOOD CELL COUNT(AUTO) 3.65 MIL/uL (4.50-6.20); RED CELL DISTRIBUTION WIDTH 11.8 % (11.0-15.5); WHITE BLOOD COUNT (AUTO) 5.6 K/uL (4.8-10.8)
[2022-12-03 13:20] LABS: CREATININE 0.5 mg/dL (0.5-1.5); POTASSIUM 4.3 mmol/L (3.5-5.1)
[2022-12-03 13:21] LABS: INR 0.94 (0.85-1.15); PROTHROMBIN TIME 10.3 SEC (9.6-11.6)
[2022-12-03 13:22] LABS: PARTIAL THROMBOPLASTIN TIME 26.9 SEC (26.3-35.5)
[2022-12-03 13:23] VITALS: BP 176/76
[2022-12-03 13:42] LABS: APPEARANCE,URINE CLEAR (CLEAR); BILIRUBIN,URINE NEGATIVE (NEGATIVE); COLOR,URINE COLORLESS (YELLOW); GLUCOSE, URINE (UA) NEGATIVE (NEGATIVE); KETONES,URINE NEGATIVE (NEGATIVE); LEUKOCYTE ESTERASE ,URINE NEGATIVE Leu/uL (NEGATIVE); NITRATE,URINE NEGATIVE (NEGATIVE); OCCULT BLOOD,URINE NEGATIVE (NEGATIVE); PROTEIN,URINE NEGATIVE (NEGATIVE); UROBILINOGEN,URINE 0.2 mg/dL (0.2-1.0)
[2022-12-03 13:59] LABS: B-TYPE NATRIURETIC PEPTIDE 54 pg/mL (0-100)
[2022-12-05 08:00] VITALS: BP 131/66
[2022-12-05 12:00] VITALS: BP 142/72
== END | disposition home or self-care (01) ==
LOC: EDSTATUS 11:00 → DAH 11:44
PROVIDERS: ATTEND Internal Medicine Cardiovascular Disease
DX: R94.39 Abnormal result of other cardiovascular function study (principal); Z79.01 Long term (current) use of anticoagulants; Z79.899 Other long term (current) drug therapy; Z53.8 Procedure and treatment not carried out for other reasons
CPT/HCPCS: 36415; 71045; 80048; 81003; 82948; 83880; 85025; 85610; 85730; 93005

== ENCOUNTER → 2023-01-23 | Outpatient (CLI) | payer MEDICARE ==
[~2023-01-23] MED LIST changes: -0.9%NACL 1000ML 1,000 ML IV ONE; -NACL1 PO
[2023-01-23 13:46] LABS: CREATININE 0.6 mg/dL (0.5-1.5)
== END | disposition home or self-care (01) ==
LOC: LAB 12:29
PROVIDERS: ATTEND Otolaryngology Plastic Surgery within the Head & Neck
DX: R49.0 Dysphonia (principal)
CPT/HCPCS: 36415; 82565; 84520